=== PATIENT | male | born 1950 | race Caucasian/White ===

== ENCOUNTER 2020-01-23 08:58 | Outpatient (REF) | payer MEDICARE, OTHER, SELFPAY ==
[2020-01-23 11:34] LABS: Estimated Average Glucose 140 mg/dL; Hemoglobin A1c % 6.5 %
[2020-01-23 12:19] LABS: Triglycerides 130 mg/dL
[2020-01-23 12:31] LABS: Alanine Aminotransferase 20 U/L (0-40); Albumin Level 4.4 g/dL (3.5-5.0); Alkaline Phosphatase 50 U/L (39-117); Anion Gap 19 (12-20); Aspartate Amino Transferase 15 U/L (5-37); Bilirubin Total 1.8 mg/dL (0.0-1.0); Blood Urea Nitrogen 18 mg/dL (9-16); Calcium 8.7 mg/dL (8.4-10.2); Carbon Dioxide 22 mmol/L (22-29); Chloride 104 mmol/L (96-108); Cholesterol 113 mg/dL; Estimated Glomerular Filt Rate > 60; Glucose Fasting 143 mg/dL (60-99); HDL Cholesterol 32 mg/dL; LDL Cholesterol Calculated 55 mg/dl; Potassium 4.4 mmol/l (3.3-5.1); Sodium 141 mmol/L (135-145); Total Protein 6.6 g/dL (6.5-8.0)
[2020-01-23 13:33] LABS: Creatinine Urine 149.26 mg/dL; Microalbum/Creatinine Ratio Ur 151.4 ug/mg cr
== END 2020-01-23 08:59 | disposition home or self-care (01) ==
LOC: HO.MANLR 08:58
PROVIDERS: PCP Internal Medicine; Visit Provider Internal Medicine
DX: E11.9 Type 2 diabetes mellitus without complications (principal)
CPT/HCPCS: 80053; 80061; 82043; 83036

== ENCOUNTER 2020-04-27 07:43 | Outpatient (REF) | payer MEDICARE, OTHER, SELFPAY ==
[2020-04-27 11:47] LABS: Estimated Average Glucose 137 mg/dL; Hemoglobin A1c % 6.4 %
== END 2020-04-27 07:44 | disposition home or self-care (01) ==
LOC: HO.MANLR 07:43
PROVIDERS: PCP Internal Medicine; Visit Provider Internal Medicine
DX: E11.9 Type 2 diabetes mellitus without complications (principal)
CPT/HCPCS: 36415; 83036

== ENCOUNTER 2020-08-09 08:33 | Outpatient (REF) | payer MEDICARE, OTHER, SELFPAY ==
[2020-08-09 12:12] LABS: Alanine Aminotransferase 17 U/L (0-40); Albumin Level 4.4 g/dL (3.5-5.0); Alkaline Phosphatase 52 U/L (39-117); Anion Gap 13 (12-20); Aspartate Amino Transferase 15 U/L (5-37); Bilirubin Total 1.9 mg/dL (0.0-1.0); Blood Urea Nitrogen 16 mg/dL (9-16); Calcium 9.3 mg/dL (8.4-10.2); Carbon Dioxide 27 mmol/L (22-29); Chloride 105 mmol/L (96-108); Cholesterol 111 mg/dL; Estimated Glomerular Filt Rate > 60; Glucose Fasting 110 mg/dL (60-99); HDL Cholesterol 35 mg/dL; LDL Cholesterol Calculated 56 mg/dl; Potassium 4.5 mmol/L (3.3-5.1); Sodium 140 mmol/L (135-145); Total Protein 6.4 g/dL (6.5-8.0); Triglycerides 100 mg/dL
[2020-08-09 13:11] LABS: Estimated Average Glucose 137 mg/dL; Hemoglobin A1c % 6.4 %
== END 2020-08-09 08:34 | disposition home or self-care (01) ==
LOC: HO.MANLR 08:33
PROVIDERS: PCP Internal Medicine; Visit Provider Internal Medicine
DX: E11.9 Type 2 diabetes mellitus without complications (principal)
CPT/HCPCS: 36415; 80053; 80061; 83036

== ENCOUNTER 2020-12-17 09:40 | Outpatient (REF) | payer MEDICARE, OTHER, SELFPAY ==
[2020-12-17 12:22] LABS: Estimated Average Glucose 140 mg/dL; Hemoglobin A1c % 6.5 %
== END 2020-12-17 09:41 | disposition home or self-care (01) ==
LOC: HO.MANLDS 09:40
PROVIDERS: PCP Internal Medicine; Visit Provider Internal Medicine
DX: E11.9 Type 2 diabetes mellitus without complications (principal)
CPT/HCPCS: 36415; 83036

== ENCOUNTER 2021-03-28 08:59 | Outpatient (REF) | payer MEDICARE, OTHER, SELFPAY ==
[2021-03-28 11:08] LABS: Estimated Average Glucose 137 mg/dL; Hemoglobin A1c % 6.4 %
== END 2021-03-28 09:00 | disposition home or self-care (01) ==
LOC: HO.MANLDS 08:59
PROVIDERS: PCP Internal Medicine; Visit Provider Internal Medicine
DX: E11.9 Type 2 diabetes mellitus without complications (principal)
CPT/HCPCS: 36415; 83036

== ENCOUNTER 2021-06-15 08:25 | Outpatient (REF) | payer MEDICARE, OTHER, SELFPAY ==
[2021-06-15 11:35] LABS: Alanine Aminotransferase 26 U/L (0-40); Albumin Level 4.1 g/dL (3.5-5.0); Alkaline Phosphatase 56 U/L (39-117); Anion Gap 14 (12-20); Aspartate Amino Transferase 18 U/L (5-37); Bilirubin Total 1.2 mg/dL (0.0-1.0); Blood Urea Nitrogen 20 mg/dL (9-16); Calcium 9.1 mg/dL (8.4-10.2); Carbon Dioxide 25 mmol/L (22-29); Chloride 105 mmol/L (96-108); Cholesterol 129 mg/dL; Estimated Glomerular Filt Rate 42; Glucose Fasting 99 mg/dL (60-99); HDL Cholesterol 33 mg/dL; LDL Cholesterol Calculated 69 mg/dl; Potassium 4.3 mmol/L (3.3-5.1); Sodium 140 mmol/L (135-145); Total Protein 6.4 g/dL (6.5-8.0); Triglycerides 137 mg/dL
[2021-06-15 12:16] LABS: Creatinine Urine 191.46 mg/dL; Microalbum/Creatinine Ratio Ur 15.6 ug/mg cr
[2021-06-15 12:17] LABS: Estimated Average Glucose 140 mg/dL; Hemoglobin A1c % 6.5 %
== END 2021-06-15 08:26 | disposition home or self-care (01) ==
LOC: HO.MANLDS 08:25
PROVIDERS: PCP Internal Medicine; Visit Provider Internal Medicine
DX: E11.9 Type 2 diabetes mellitus without complications (principal)
CPT/HCPCS: 36415; 80053; 80061; 82043; 83036

== ENCOUNTER 2021-10-03 09:18 | Outpatient (REF) | payer MEDICARE, OTHER, SELFPAY ==
[2021-10-03 11:16] LABS: Estimated Average Glucose 137 mg/dL; Hemoglobin A1c % 6.4 %
== END 2021-10-03 09:19 | disposition home or self-care (01) ==
LOC: HO.MANLDS 09:18
PROVIDERS: Visit Provider Internal Medicine
DX: E11.9 Type 2 diabetes mellitus without complications (principal)
CPT/HCPCS: 36415; 83036

== ENCOUNTER 2022-01-16 08:57 | Outpatient (REF) | payer MEDICARE, OTHER, SELFPAY ==
[2022-01-16 11:47] LABS: Estimated Average Glucose 140 mg/dL; Hemoglobin A1c % 6.5 %
[2022-01-16 12:16] LABS: Alanine Aminotransferase 29 U/L (0-40); Albumin Level 4.4 g/dL (3.5-5.0); Alkaline Phosphatase 51 U/L (39-117); Anion Gap 19 (12-20); Aspartate Amino Transferase 23 U/L (5-37); Blood Urea Nitrogen 27 mg/dL (9-16); Calcium 8.7 mg/dL (8.4-10.2); Carbon Dioxide 22 mmol/L (22-29); Chloride 102 mmol/L (96-108); Cholesterol 134 mg/dL; Estimated Glomerular Filt Rate 39; Glucose Random 120 mg/dL (60-115); HDL Cholesterol 31 mg/dL; LDL Cholesterol Calculated 51 mg/dl; Potassium 4.6 mmol/L (3.3-5.1); Sodium 138 mmol/L (135-145); Total Protein 6.5 g/dL (6.5-8.0); Triglycerides 262 mg/dL
== END 2022-01-16 08:58 | disposition home or self-care (01) ==
LOC: HO.MANLDS 08:57
PROVIDERS: Visit Provider Internal Medicine
DX: E11.9 Type 2 diabetes mellitus without complications (principal)
CPT/HCPCS: 36415; 80053; 80061; 83036

== ENCOUNTER 2022-01-18 09:29 | Outpatient (REF) | payer MEDICARE, OTHER, SELFPAY ==
[2022-01-18 09:55] LABS: MANUAL DIFF FLAG NO
[2022-01-18 10:34] LABS: Basophils Absolute Auto 0.1 X10*3/uL (0.0-0.2); Basophils Percent Auto 0.8 % (0-2); Eosinophils Absolute Auto 0.9 X10*3/uL (0.0-0.4); Eosinophils Percent Auto 11.8 % (0-4); Hematocrit 39.1 % (42.0-52.0); Hemoglobin 12.8 g/dl (14.0-18.0); Imm Gran Abs Auto 0.07 X10*3/uL (0.00-0.03); Lymphocytes Absolute Auto 1.2 X10*3/uL (1.2-4.9); Lymphocytes Percent Auto 16.9 % (20-40); Mean Corpuscular HGB Conc 32.7 g/dl (31.0-36.0); Mean Corpuscular Hemoglobin 28.7 pg (27.0-33.0); Mean Corpuscular Volume 87.7 fL (80.0-98.0); Mean Platelet Volume 10.4 fL (9.4-12.4); Monocytes Absolute Auto 0.6 X10*3/uL (0.1-1.2); Monocytes Percent Auto 7.8 % (2-11); Neutrophils Absolute Auto 4.5 x10*3/uL (2.0-8.3); Neutrophils Percent Auto 61.7 % (45-73); Platelet Count 210 X10*3/uL (160-400); Red Blood Count 4.46 X10*6/uL (4.60-5.80); Red Cell Distribution Width 13.4 % (11.0-16.0); White Blood Count 7.3 X10*3/uL (4.8-10.8)
[2022-01-18 10:42] LABS: Estimated Average Glucose 140 mg/dL; Hemoglobin A1c % 6.5 %
[2022-01-18 11:18] LABS: Alanine Aminotransferase 30 U/L (0-40); Albumin Level 4.4 g/dL (3.5-5.0); Alkaline Phosphatase 47 U/L (39-117); Anion Gap 14 (12-20); Aspartate Amino Transferase 23 U/L (5-37); Bilirubin Total 1.1 mg/dL (0.0-1.0); Calcium 8.7 mg/dL (8.4-10.2); Carbon Dioxide 24 mmol/L (22-29); Chloride 104 mmol/L (96-108); Cholesterol 121 mg/dL; Estimated Glomerular Filt Rate 46; Glucose Random 171 mg/dL (60-115); HDL Cholesterol 28 mg/dL; LDL Cholesterol Calculated 69 mg/dl; Potassium 4.3 mmol/L (3.3-5.1); Sodium 138 mmol/L (135-145); Total Protein 6.5 g/dL (6.5-8.0); Triglycerides 123 mg/dL
[2022-01-18 11:22] LABS: Blood Urea Nitrogen 26 mg/dL (9-16)
== END 2022-01-18 09:30 | disposition home or self-care (01) ==
LOC: HO.LAB 09:29
PROVIDERS: PCP Internal Medicine; Visit Provider Internal Medicine
DX: Z00.00 Encounter for general adult medical examination without abnormal findings (principal); Z13.6 Encounter for screening for cardiovascular disorders; E11.9 Type 2 diabetes mellitus without complications
CPT/HCPCS: 36415; 80053; 80061; 83036; 85025

== ENCOUNTER 2022-04-18 10:05 | Outpatient (REF) | payer MEDICARE, OTHER, SELFPAY ==
[2022-04-18 11:48] LABS: Estimated Average Glucose 131 mg/dL; Hemoglobin A1c % 6.2 %
[2022-04-18 12:04] LABS: Alanine Aminotransferase 28 U/L (0-40); Alkaline Phosphatase 54 U/L (39-117); Anion Gap 17 (12-20); Aspartate Amino Transferase 26 U/L (5-37); Bilirubin Total 1.3 mg/dL (0.0-1.0); Blood Urea Nitrogen 30 mg/dL (9-16); Calcium 8.9 mg/dL (8.4-10.2); Carbon Dioxide 24 mmol/L (22-29); Chloride 104 mmol/L (96-108); Cholesterol 124 mg/dL; Estimated Glomerular Filt Rate 45; Glucose Random 107 mg/dL (60-115); HDL Cholesterol 30 mg/dL; LDL Cholesterol Calculated 63 mg/dl; Potassium 4.7 mmol/L (3.3-5.1); Sodium 140 mmol/L (135-145); Triglycerides 155 mg/dL
== END 2022-04-18 10:06 | disposition home or self-care (01) ==
LOC: HO.MANLDS 10:05
PROVIDERS: Visit Provider Internal Medicine
DX: E11.9 Type 2 diabetes mellitus without complications (principal)
CPT/HCPCS: 36415; 80053; 80061; 83036

== ENCOUNTER 2022-07-10 09:22 | Outpatient (REF) | payer MEDICARE, OTHER, SELFPAY ==
[2022-07-10 11:52] LABS: Estimated Average Glucose 312 mg/dL; Hemoglobin A1c % 12.5 %
[2022-07-10 13:48] LABS: Alanine Aminotransferase 16 U/L (0-40); Albumin Level 3.9 g/dL (3.5-5.0); Alkaline Phosphatase 63 U/L (39-117); Anion Gap 15 (12-20); Aspartate Amino Transferase 10 U/L (5-37); Bilirubin Total 1.9 mg/dL (0.0-1.0); Blood Urea Nitrogen 21 mg/dL (9-16); Calcium 8.9 mg/dL (8.4-10.2); Carbon Dioxide 27 mmol/L (22-29); Chloride 98 mmol/L (96-108); Cholesterol 116 mg/dL; Estimated Glomerular Filt Rate 44; Glucose Random 404 mg/dL (60-115); HDL Cholesterol 39 mg/dL; LDL Cholesterol Calculated 54 mg/dl; Potassium 4.6 mmol/L (3.3-5.1); Sodium 135 mmol/L (135-145); Triglycerides 119 mg/dL
== END 2022-07-10 09:23 | disposition home or self-care (01) ==
LOC: HO.MANLDS 09:22
PROVIDERS: Visit Provider Internal Medicine
DX: Z13.89 Encounter for screening for other disorder (principal)
CPT/HCPCS: 36415; 80053; 80061; 83036

== ENCOUNTER 2022-07-10 11:07 | Outpatient (REF) | payer MEDICARE, OTHER, SELFPAY ==
[2022-07-10 15:23] LABS: Creatinine Urine 93.62 mg/dL; Microalbum/Creatinine Ratio Ur 40.5 ug/mg cr
== END 2022-07-10 11:08 | disposition home or self-care (01) ==
LOC: HO.MANLNP 11:07
PROVIDERS: Visit Provider Internal Medicine
DX: E11.9 Type 2 diabetes mellitus without complications (principal)
CPT/HCPCS: 36415; 80053; 80061; 82043; 83036

== ENCOUNTER 2022-07-21 12:25 | Outpatient (REF) | payer MEDICARE, OTHER, SELFPAY ==
[2022-07-21 14:03] LABS: Appearance Urine Clear; Color Urine Yellow; Glucose Urine UA >=1000 mg/dL (Negative); Leukocyte Esterase Urine Negative (Negative); Nitrite Urine Negative (Negative); Specific Gravity - Urine >= 1.030 (1.005-1.025); UMIC TRIGGER UACC YES; Urine Blood Negative (Negative); Urine Ketones Negative (Negative); Urine Protein Negative (Neg-Trace)
[2022-07-21 14:05] LABS: Bacteria Urine None Seen (None Seen); Hyaline Casts Urine 0-2 /LPF (0-2); RBC Urine 0-2 /HPF (0-2); Squamous Epithelial Cell Urine 0-2 /HPF (0-2); WBC Urine 0-5 /HPF (0-5)
[2022-07-21 14:28] LABS: Creatinine Urine 48.72 mg/dL; Microalbum/Creatinine Ratio Ur 10.2 ug/mg cr
== END 2022-07-21 12:26 | disposition home or self-care (01) ==
LOC: HO.MANLNP 12:25
PROVIDERS: Visit Provider Internal Medicine
DX: E11.9 Type 2 diabetes mellitus without complications (principal); R30.0 Dysuria
CPT/HCPCS: 81001; 81003; 82043

== ENCOUNTER 2022-10-18 09:05 | Outpatient (REF) | payer MEDICARE, OTHER, SELFPAY ==
[2022-10-18 13:32] LABS: Estimated Average Glucose 180 mg/dL; Hemoglobin A1c % 7.9 %
== END 2022-10-18 09:06 | disposition home or self-care (01) ==
LOC: HO.MANLDS 09:05
PROVIDERS: Visit Provider Internal Medicine
DX: E11.9 Type 2 diabetes mellitus without complications (principal)
CPT/HCPCS: 36415; 83036

== ENCOUNTER 2023-01-02 09:05 | Outpatient (REF) | payer MEDICARE, OTHER, SELFPAY ==
[2023-01-02 13:54] LABS: Estimated Average Glucose 171 mg/dL; Hemoglobin A1C 149.3902 umol/L; Hemoglobin A1c % 7.6 % (<6.0)
[2023-01-02 14:08] LABS: Alanine Aminotransferase 9 U/L (0-40); Albumin Level 4.2 g/dL (3.5-5.0); Alkaline Phosphatase 51 U/L (39-117); Anion Gap 16 (12-20); Aspartate Amino Transferase 11 U/L (5-37); Bilirubin Total 1.4 mg/dL (0.0-1.0); Blood Urea Nitrogen 30 mg/dL (9-16); Calcium 9.2 mg/dL (8.4-10.2); Carbon Dioxide 24 mmol/L (22-29); Chloride 103 mmol/L (96-108); Cholesterol 100 mg/dL (<200); Estimated Glomerular Filt Rate 48; Glucose Random 153 mg/dL (60-115); HDL Cholesterol 31 mg/dL (>40); LDL Cholesterol Calculated 47 mg/dL (<100); Potassium 4.1 mmol/L (3.3-5.1); Sodium 139 mmol/L (135-145); Total Protein 6.5 g/dL (6.5-8.0); Triglycerides 112 mg/dL (<150)
== END 2023-01-02 09:06 | disposition home or self-care (01) ==
LOC: HO.MANLDS 09:05
PROVIDERS: Visit Provider Internal Medicine
DX: E11.9 Type 2 diabetes mellitus without complications (principal)
CPT/HCPCS: 36415; 80053; 80061; 83036

== ENCOUNTER 2023-02-05 09:42 | Outpatient (REF) | payer MEDICARE, OTHER, SELFPAY ==
[2023-02-05 14:06] LABS: Estimated Average Glucose 177 mg/dL; Hemoglobin A1c % 7.8 % (<6.0)
[2023-02-05 14:34] LABS: Alanine Aminotransferase 11 U/L (0-40); Albumin Level 4.1 g/dL (3.5-5.0); Alkaline Phosphatase 51 U/L (39-117); Anion Gap 15 (12-20); Aspartate Amino Transferase 12 U/L (5-37); Bilirubin Total 1.3 mg/dL (0.0-1.0); Blood Urea Nitrogen 28 mg/dL (9-16); Calcium 9.6 mg/dL (8.4-10.2); Carbon Dioxide 25 mmol/L (22-29); Chloride 104 mmol/L (96-108); Cholesterol 87 mg/dL (<200); Estimated Glomerular Filt Rate 51; Glucose Random 186 mg/dL (60-115); HDL Cholesterol 25 mg/dL (>40); LDL Cholesterol Calculated 35 mg/dL (<100); Potassium 3.8 mmol/L (3.3-5.1); Sodium 140 mmol/L (135-145); Total Protein 6.7 g/dL (6.5-8.0); Triglycerides 139 mg/dL (<150)
== END 2023-02-05 09:43 | disposition home or self-care (01) ==
LOC: HO.MANLDS 09:42
PROVIDERS: Visit Provider Internal Medicine
DX: E11.9 Type 2 diabetes mellitus without complications (principal)
CPT/HCPCS: 36415; 80053; 80061; 83036

== ENCOUNTER 2023-05-07 09:13 | Outpatient (REF) | payer MEDICARE, OTHER, SELFPAY ==
[2023-05-07 14:05] LABS: Estimated Average Glucose 171 mg/dL; Hemoglobin A1c % 7.6 % (<6.0)
[2023-05-07 14:22] LABS: Alanine Aminotransferase 9 U/L (0-40); Albumin Level 4.1 g/dL (3.5-5.0); Alkaline Phosphatase 67 U/L (39-117); Anion Gap 14 (12-20); Aspartate Amino Transferase 10 U/L (5-37); Bilirubin Total 1.4 mg/dL (0.0-1.0); Blood Urea Nitrogen 31 mg/dL (9-16); Calcium 9.2 mg/dL (8.4-10.2); Carbon Dioxide 26 mmol/L (22-29); Chloride 104 mmol/L (96-108); Cholesterol 89 mg/dL (<200); Estimated Glomerular Filt Rate 44; Glucose Random 214 mg/dL (60-115); HDL Cholesterol 30 mg/dL (>40); LDL Cholesterol Calculated 45 mg/dL (<100); Potassium 4.2 mmol/L (3.3-5.1); Sodium 140 mmol/L (135-145); Total Protein 6.6 g/dL (6.5-8.0); Triglycerides 74 mg/dL (<150)
[2023-05-07 14:33] LABS: Creatinine Urine 78.16 mg/dL; Microalbum/Creatinine Ratio Ur 88.2 ug/mg cr (<30)
== END 2023-05-07 09:14 | disposition home or self-care (01) ==
LOC: HO.MANLDS 09:13
PROVIDERS: Visit Provider Internal Medicine
DX: E11.9 Type 2 diabetes mellitus without complications (principal)
CPT/HCPCS: 36415; 80053; 80061; 82043; 82570; 83036

== ENCOUNTER 2023-09-24 09:23 | Outpatient (REF) | payer MEDICARE, OTHER, SELFPAY ==
[2023-09-24 13:35] LABS: Estimated Average Glucose 189 mg/dL; Hemoglobin A1c % 8.2 % (<6.0)
== END 2023-09-24 09:24 | disposition home or self-care (01) ==
LOC: HO.MANLDS 09:23
PROVIDERS: Visit Provider Internal Medicine
DX: E11.9 Type 2 diabetes mellitus without complications (principal)
CPT/HCPCS: 36415; 83036

== ENCOUNTER 2023-12-24 09:25 | Outpatient (REF) | payer MEDICARE, OTHER, SELFPAY ==
[2023-12-24 13:40] LABS: Estimated Average Glucose 183 mg/dL; Hemoglobin A1C 202.2535 umol/L; Total Hemoglobin (HGBA1C) 3158.1207 umol/L
[2023-12-24 14:21] LABS: Alanine Aminotransferase 15 U/L (0-40); Albumin Level 4.3 g/dL (3.5-5.0); Alkaline Phosphatase 54 U/L (39-117); Anion Gap 13 (12-20); Aspartate Amino Transferase 33 U/L (5-37); Bilirubin Total 0.9 mg/dL (0.0-1.0); Blood Urea Nitrogen 32 mg/dL (9-16); Calcium 9.4 mg/dL (8.4-10.2); Carbon Dioxide 28 mmol/L (22-29); Chloride 102 mmol/L (96-108); Cholesterol 126 mg/dL (<200); Estimated Glomerular Filt Rate 44; Glucose Random 199 mg/dL (60-115); HDL Cholesterol 32 mg/dL (>40); LDL Cholesterol Calculated 62 mg/dL (<100); Potassium 4.7 mmol/L (3.3-5.1); Sodium 138 mmol/L (135-145); Total Protein 6.7 g/dL (6.5-8.0); Triglycerides 161 mg/dL (<150)
[2023-12-24 14:47] LABS: Creatinine Urine 60.25 mg/dL; Microalbum/Creatinine Ratio Ur 29.8 ug/mg cr (<30)
== END 2023-12-24 09:26 | disposition home or self-care (01) ==
LOC: HO.MANLDS 09:25
PROVIDERS: Visit Provider Internal Medicine
DX: E11.9 Type 2 diabetes mellitus without complications (principal)
CPT/HCPCS: 36415; 80053; 80061; 82043; 82570; 83036

== ENCOUNTER 2024-04-11 09:51 | Outpatient (REF) | payer MEDICARE, OTHER, SELFPAY ==
--- OUTSIDE RECORDS SUMMARY | 2024-04-11 10:37 | XMS_ITS | Clinical Summary ---
Author Organization LL [address] [facility] Address [address] [place] [address] Phone Care Team Providers Care Livery Car Driver Name Role Phone Yuniel Kaplan DO Primary Care Provider Allergies No known active allergies Medications Medication Sig Dispensed Refills Start Date End Date Status Eliquis 5 mg tablet Take 1 tablet (5 mg total) by mouth 2 (two) times a day. Active aspirin 81 mg EC tablet Take 1 tablet (81 mg total) by mouth 1 (one) time each day. Active metFORMIN (GLUCOPHAGE) 1,000 mg tablet Take 1 tablet (1,000 mg total) by mouth 2 (two) times a day with meals. Active atorvastatin (LIPITOR) 80 mg tablet Take 1 tablet (80 mg total) by mouth 1 (one) time each day. Active metoprolol succinate (TOPROL-XL) 50 mg 24 hr tablet Take 1 tablet (50 mg total) by mouth 1 (one) time each day. Do not crush or chew. Active hydroCHLOROthiazid e (HYDRODIURIL) 25 mg tablet Take 1 tablet (25 mg total) by mouth 1 (one) time each day. Active lisinopril (PRINIVIL,ZESTRIL) 40 mg tablet Take 1 tablet (40 mg total) by mouth 1 (one) time each day. Active isosorbide mononitrate (IMDUR) 60 mg 24 hr tablet Take 1 tablet (60 mg total) by mouth 1 (one) time each day in the morning. Active zolpidem (AMBIEN) 10 mg tablet Take 1 tablet (10 mg total) by mouth at bedtime as needed. Max Daily Amount: 10 mg 02/20/2024 Active glimepiride (AMARYL) 4 mg tablet Take 1 tablet (4 mg total) by mouth 1 (one) time each day before breakfast. 11/04/2020 Active Jardiance 25 mg tablet Take 1 tablet (25 mg total) by mouth 1 (one) time each day. 12/21/2023 Active metFORMIN (FORTAMET) 1,000 mg 24 hr tablet Take 1 tablet (1,000 mg total) by mouth 2 (two) times a day. 02/13/2012 03/24/2024 Discontinued isosorbide mononitrate (IMDUR) 30 mg 24 hr tablet Take 1 tablet (30 mg total) by mouth 1 (one) time each day. Do not crush or chew. 03/24/2024 Discontinued Encounters Date Type Department Care Team Description 04/11/2024 Lab Requisition [facility] Lab [address] [place] [address] Adela Song MD Urinary tract infection, site not specified 02/22/2024 Lab Requisition [facility] Lab [address] [place] [phone] Corazon Avina MD Frequency of micturition from Last 3 Months Surgical History Surgery Date Site/Laterality Comments BACK SURGERY Right PROCEDURE: HISTORICAL BACK SURGERY; COMMENT: right L4-5 metrix july 2018 CARDIAC SURGERY PROCEDURE: HISTORICAL HEART SURGERY(ASD,VSD,VALVES); COMMENT: cardiac stents BACK SURGERY 06/08/2022 PROCEDURE: HISTORICAL BACK SURGERY; COMMENT: Redo right L4-5 minimally invasive discectomy, Dr. Mclain CORONARY STENT PLACEMENT LUMBAR LAMINECTOMY SPINE SURGERY Medical History Medical History Date Comments Coronary artery disease DX:Coron filomena artery disease Diabetes mellitus type 2, co ntrolled, with complications ([facility]) DX:Diabetes mellitus type 2, controlled, with complications ([facility]) Essential hypertension DX:Essent ial hypertension Obesity DX:Obesity Hyperlipidemia DX:Hyperlipidemi a Social History Tobacco Use Types Packs/Day Years Used Date Smoking Tobacco: Never Smokeless Tobacco: Never Sex and Gender Information Value Date Recorded Sex Assigned at Not on file Gender Identity Not on file Sexual Orientation Not on file Obstetrics History Last Filed Vital Signs Vital Sign Reading Time Taken Comments Blood Pressure - - Pulse - - Temperature - - Respiratory Rate - - Oxygen Saturation - - Inhaled Oxygen Concentration - - Weight 90.7 kg (200 lb) 03/24/2024 10:00 AM EST Height 177.8 cm (5' 10 ) 03/24/2024 10:00 AM EST Body Mass Index 28.7 03/24/2024 10:00 AM EST Plan of Treatment Upcoming Encounters Date Type Department Care Team (Late st Contact Info) Description 04/18/2024 7:30 AM EST Hospital Encounter [facility] OR [address] [place] [phone] Adela Song MD [address] [place] [address] 04/18/2024 7:30 AM EST - 04/18/2024 9:[address] [facility] OR [address] [place] [phone] Adela Song MD [address] [place] [address] TRANSURETHERAL RESECTION OF PROSTATE [77660 (CPT??)] Scheduled Procedures Name Priority Associated Diagnoses Date/Ti me CYSTOSCOPY TUR PROSTATE Benign prostatic hyperplasia with lower urinary tract symptoms 04/18/2024 7:30 AM EST Health Maintenance Due Date Last Done Comments Diabetes: Annual GFR (Glomerular Filtration Rate) 1949 Diabetes: Annual Foot Exam 08/05/1959 Diabetes: Annual Retina Eye Exam 08/05/1959 Zoster Vaccines (1 of 2) 1968 RSV Immunization Patients 60 + Years Old (1 - Risk 60-74 years 1-dose series) 2009 Pneumococcal Vaccine: 65+ Years (2 of 2 - PPSV23 or PCV20) 05/15/2018 03/20/2018 Cholesterol Screening (Lipid Panel) 04/03/2023 Colorectal Cancer Screening: Colonoscopy 04/03/2023 Depression Screening 04/03/2023 Falls Risk Assessment 04/03/2023 Hepatitis C Screening 04/03/2023 Medicare Annual Wellness Visit 04/03/2023 Social Influencers of Health Screening 04/03/2023 COVID-19 Vaccine (4 - 2023-2 5 season) 2023 03/17/2021, 06/10/2020, 05/15/2020 Influenza Vaccine (#1) 2023 2, 03/11/2021 Diabetes: Annual Urine Albumin-Creatinine Ratio (uACR) 03/18/2024 Diabetes: Blood Sugar Contro l Test (HGBA1C) 03/18/2024 Hypertension/CHF/CAD Annual BMP Blood Test 03/18/2024 DTaP,Tdap,and Td Vaccines (2 - Td or Tdap) 03/20/2028 03/20/2018 HIB Vaccines Aged Out No longer eligi ble based on patient's age to complete this topic HPV Vaccines Aged Out No longer eligi ble based on patient's age to complete this topic Hepatitis A Vaccines Aged Out No long er eligible based on patient's age to complete this topic Hepatitis B Vaccines Aged Out No long er eligible based on patient's age to complete this topic IPV Vaccines Aged Out No longer eligi ble based on patient's age to complete this topic MMR Vaccines Aged Out No longer eligi ble based on patient's age to complete this topic Meningococcal ACWY Vaccine Aged Out N o longer eligible based on patient's age to complete this topic RSV Immunization Patients Under 20 months Aged Out No longer eligible b ased on patient's age to complete this topic Varicella Vaccines Aged Out No longer eligible based on patient's age to complete this topic Procedures Procedure Name Priority Date/Time Associated Diagnosis Comments CULTURE URINE Routine 02/22/2024 1:05 PM EST Frequency of micturition from Last 3 Months Results * (ABNORMAL) Culture urine (02/22/2024 1:05 PM EST) Culture, Urine <100 CFU/mL Gram Positive Cocci(A) 02/24/2024 9:52 AM EST [facility] Comment: The organism value for this result has been updated. These results have been appended to the previously preliminary verified report. Urine Urine specimen from urinary conduit / Unknown 02/22/2024 1:05 PM EST 02/22/2024 1:10 PM EST Corazon Avina MD LAB MICROBIOLOGY - GENERAL ORDERABLES ANTONIO MCGREGOR [place] ([facility] LAB [address] [place] [address], from Last 3 Months Care Teams Livery Car Driver Relationship Specialty Start Date End Date Yuniel Kaplan DO [address] [place], [place] PCP - General 05/22/22
--- OUTSIDE RECORDS SUMMARY | 2024-04-11 10:37 | XMS_ITS | Encounter Summary ---
Author Organization [facility] Address [address] [place] [address] Care Team Providers Care Polygraph Examiner Name Role Phone Yuniel Kaplan DO Primary Care Provider [phone] Encounter Details Date Type Department Care Team (Late st Contact Info) Description 02/22/2024 Lab Requisition [facility] [address] [facility] [place] [phone] Corazon Avina MD [facility] [address] [address] Frequency of micturition Social History Tobacco Use Types Packs/Day Years Used Date Smoking Tobacco: Never Smokeless Tobacco: Never Sex and Gender Information Value Date Recorded Sex Assigned at Not on file Gender Identity Not on file Sexual Orientation Not on file documented as of this encounter Plan of Treatment Upcoming Encounters Date Type Department Care Team (Late st Contact Info) Description 04/18/2024 7:30 AM EST Hospital Encounter [address] [phone] Adela Song MD [address] [address] 04/18/2024 7:30 AM EST - 04/18/2024 9:00 AM EST Surgery [address] [phone] Adela Song MD [facility] [address] [address] TRANSURETHERAL RESECTION OF PROSTATE [50913 (CPT??)] Scheduled Procedures Name Priority Associated Diagnoses Date/Ti me CYSTOSCOPY TUR PROSTATE Benign prostatic hyperplasia with lower urinary tract symptoms 04/18/2024 7:30 AM EST documented as of this encounter Procedures Procedure Name Priority Date/Time Associated Diagnosis Comments CULTURE URINE Routine 02/22/2024 1:05 PM EST Frequency of micturition documented in this encounter Results * (ABNORMAL) Culture urine (02/22/2024 1:05 PM EST) Culture, Urine <100 CFU/mL Gram Positive Cocci(A) 02/24/2024 9:52 AM EST [facility] Comment: The organism value for this result has been updated. These results have been appended to the previously preliminary verified report. Urine Urine specimen from urinary conduit / Unknown 02/22/2024 1:05 PM EST 02/22/2024 1:10 PM EST Corazon Avina MD LAB MICROBIOLOGY - GENERAL ORDERABLES [facility] [address] [place], [place] [address] [phone] documented in this encounter Visit Diagnoses Diagnosis Frequency of micturition Urinary frequency Benign prostatic hyperplasia with lower urinary tract symptoms documented in this encounter Care Teams Polygraph Examiner Relationship Specialty Start Date End Date Yuniel Kaplan DO [address] [facility] [address] [place], [place] PCP - General 05/22/22 documented as of this encounter
--- OUTSIDE RECORDS SUMMARY | 2024-04-11 10:37 | XMS_ITS | Encounter Summary ---
Author Organization [facility] Address [id number] [place] [phone] Care Team Providers Care Mfg Assoc Name Role Phone Yuniel Kaplan DO Primary Care Provider [phone] Encounter Details Date Type Department Care Team (Late st Contact Info) Description 04/11/[address] [facility] Lab [address] [facility] [place] [phone] Adela Song MD [facility] [address] [address] Urinary tract infection, site not specified Social History Tobacco Use Types Packs/Day Years [...] Description 04/18/2024 7:30 AM EST Hospital Encounter [address] [phone] Adela Song MD [facility] [address] [address] 04/18/2024 7:30 AM EST - 04/18/2024 9:00 AM EST Surgery [facility] OR [address] [place] [phone] Adela Song MD [address] [address] TRANSURETHERAL RESECTION OF PROSTATE [[id number] (CPT??)] Scheduled Procedures Name Priority Associated Diagnoses Date/Ti me CYSTOSCOPY TUR PROSTATE Benign prostatic hyperplasia with lower urinary tract symptoms 04/18/2024 7:30 AM EST documented as of this encounter Visit Diagnoses Diagnosis Urinary tract infection, site not specified Benign prostatic hyperplasia with lower urinary tract symptoms documented in this encounter Care Teams Mfg Assoc Relationship Specialty Start Date End Date Yuniel Kaplan DO [address] [facility] [address] [place], [place] PCP - General 05/22/22 documented as of this encounter
[2024-04-11 14:44] LABS: Prostate Specific Antigen 1.07 ng/mL (<0.05-4.0)
== END 2024-04-11 09:52 | disposition home or self-care (01) ==
LOC: HO.MANLDS 09:51
PROVIDERS: Visit Provider Internal Medicine
DX: Z12.5 Encounter for screening for malignant neoplasm of prostate (principal); D49.511 Neoplasm of unspecified behavior of right kidney
CPT/HCPCS: 36415; 84153

== ENCOUNTER 2024-10-01 10:39 | Outpatient (REF) | payer MEDICARE, OTHER, SELFPAY ==
--- OUTSIDE RECORDS SUMMARY | 2024-10-01 11:38 | XMS_ITS | Clinical Summary ---
Author Organization [address] Address [address] [place] [address] Phone Care Team Providers Care Humidifier Maintenance Worker Name Role Phone Yuniel Kaplan Primary Care Provider [phone] Allergies No known active allergies Medications metFORMIN (GLUCOPHAGE) 1,000 mg tablet Take 1 [...] day. Do not crush or chew. Active hydroCHLOROthiaz marty (HYDRODIURIL) 25 mg tablet Take 1 tablet (25 mg total) by mouth 1 (one) time each day. Active lisinopril (PRINIVIL,ZESTRI L) 40 mg tablet Take 1 tablet (40 mg total) by mouth 1 (one) time each day. Active isosorbide mononitrate (IMDUR) 60 mg 24 hr tablet Take 1 tablet (60 mg total) by mouth 1 (one) time each day in the morning. Active Jardiance 25 mg tablet Take 1 tablet (25 mg total) by mouth 1 (one) time each day. 12/21/2023 Active aspirin 81 mg EC tablet Take 1 tablet (81 mg total) by mouth 1 (one) time each day. 04/21/2024 Active Eliquis 5 mg tablet Take 1 tablet (5 mg total) by mouth 2 (two) times a day. 04/23/2024 Active Surgical History Surgery Date Site/Laterality Comments BACK [...] mellitus type 2, co ntrolled, with complications (CMS/HCC V24, CMS/HCC V28) DX:Diabetes mellitus type 2, controlled, with complications ([facility]) Essential hypertension DX:Essent ial hypertension Obesity DX:Obesity Hyperlipidemia DX:Hyperlipidemi a Chronic kidney disease Social History Tobacco Use Types Packs/Day Years Used Date Smoking Tobacco: Former Cigarettes Smokeless Tobacco: Never Tobacco Cessation:Counseling Given: Not Answered Alcohol Use Standard Drinks/Week Comments Not Currently 0 (1 standard drink = 0.6 oz pur e alcohol) Interpersonal Safety Answer Date Record ed Physical Abuse 04/18/2024 Verbal Abuse 04/18/2024 Sex and Gender Information Value Date Recorded Sex Assigned at Male 04/17/2024 9:28 AM EST Legal Sex Male 9:11 AM EST Gender Identity Male 04/17/2024 9:28 AM EST Sexual Orientation Straight 04/18/2024 6: 04 AM EST Obstetrics History Last Filed Vital Signs Vital Sign Reading Time Taken Comments Blood Pressure 162/91 04/18/2024 11:55 AM EST Pulse 65 04/18/2024 11:55 AM EST Temperature 36.3 C (97.3 F) 04/18/2024 11:55 AM EST Respiratory Rate 20 04/18/2024 11:55 AM EST Oxygen Saturation 95% 04/18/2024 11:55 AM EST Inhaled Oxygen Concentration - - Weight 90.7 kg (200 lb) 03/24/2024 10:00 AM EST Height 177.8 cm (5' 10 ) 03/24/2024 10:00 AM EST Body Mass Index 28.7 03/24/2024 10:00 AM EST Plan of Treatment Health Maintenance Due Date Last Done Comments Diabetes: Annual Foot Exam 08/05/1959 Diabetes: Annual Retina Eye Exam 08/05/1959 Hepatitis A Vaccines (1 of 2 - Risk 2-dose series) 1968 Zoster Vaccines (1 of 2) 1968 Hepatitis B Vaccines (1 of 3 - Risk 3-dose series) 2009 Pneumococcal Vaccine: 50+ Years (2 of 2 - PPSV23) 05/15/2018 03/20/2018 Abdominal Aortic Aneurysm (AAA) Screen 04/03/2023 Cholesterol Screening (Lipid Panel) 04/03/2023 Colorectal Cancer Screening: Colonoscopy 04/03/2023 Falls Risk Assessment 04/03/2023 Hepatitis C Screening 04/03/2023 Medicare Annual Wellness Visit 04/03/2023 Social Influencers of Health Screening 04/03/2023 COVID-19 Vaccine ( - 2023-2 5 season) 2023 03/17/2021, 06/10/2020, 05/15/2020 Depression Screening 03/05/2024 Diabetes: Annual Urine Albumin-Creatinine Ratio (uACR) 03/18/2024 Diabetes: Blood Sugar Contro l Test (HGBA1C) 03/18/2024 RSV Immunization Adult Patients (1 - 1-dose 75+ series) 2024 Influenza Vaccine (#1) 2024 2, 03/11/2021, 12/11/2019 Diabetes: Annual GFR (Glomerular Filtration Rate) 03/31/2025 03/31/2024 Hypertension/CHF/CAD Annual BMP Blood Test 03/31/2025 03/31/2024 DTaP,Tdap,and Td Vaccines (2 - Td or [...] patient's age to complete this topic Meningococcal B Vaccine Aged Out No l onger eligible based on patient's age to complete this topic RSV Immunization Patients Under 20 months Aged Out No longer eligible b ased on patient's age to complete this topic Varicella Vaccines Aged Out No longer eligible based on patient's age to complete this topic Insurance MEDICARE MEDICAL JESSUP Care Teams Humidifier Maintenance Worker Relationship Specialty Start Date End Date Yuniel Kaplan DO [address] [facility] [address] [place], [place] PCP - General 05/22/22
--- OUTSIDE RECORDS SUMMARY | 2024-10-01 11:38 | XMS_ITS | Encounter Summary ---
Author Organization [facility] Address [address] [place] [phone] Phone Care Team Providers Care Plant Manager Name Role Phone Yuniel Kaplan DO Primary Care Provider [phone] Encounter Details Date Type Department Care Team (Late st Contact Info) Description 04/09/2020 Transcribe Orders Virtual Department [address] [place] [address] Renard Lewis MD [address] [place] [address] [email or web address] Social History Tobacco Use Types Packs/Day Years Used Date Smoking Tobacco: Former Cigarettes Q uit: 2012 Smokeless Tobacco: Never Alcohol Use Standard Drinks/Week Comments Never 0 (1 standard drink = 0.6 oz pur e alcohol) Sex and Gender Information Value Date Recorded Sex Assigned at Male 07/28/2018 11:16 AM EDT Legal Sex Male 10:02 PM EDT Gender Identity Male 07/28/2018 11:16 AM EDT Sexual Orientation Not on file documented as of this encounter Plan of Treatment Not on file documented as of this encounter Visit Diagnoses Not on filedocumented in this encounter Care Teams Plant Manager Relationship Specialty Start Date End Date Yuniel Kaplan DO [email or web address] PCP - General Internal Medicine 03/15/18 documented as of this encounter Additional Source Comments The information contained in this document represents components of the legal health record. It is not the complete legal health record.[facility]
[2024-10-01 13:26] LABS: MANUAL DIFF FLAG NO
[2024-10-01 13:36] LABS: Hematocrit 36.2 % (42.0-52.0); Hemoglobin 11.3 g/dl (14.0-18.0); Imm Gran Abs Auto 0.07 X10*3/uL (0.00-0.03); Imm Gran Pct Auto 0.8 % (0.0-0.4); Lymphocytes Absolute Auto 1.0 X10*3/uL (1.2-4.9); Mean Corpuscular HGB Conc 31.2 g/dl (31.0-36.0); Mean Corpuscular Hemoglobin 23.3 pg (27.0-33.0); Mean Corpuscular Volume 74.6 fL (80.0-98.0); NRBC Abs Auto 0.000 X10*3/uL (0.0-0.012); NRBC Pct Auto 0.0 /100WBC (0.0-0.2); Platelet Count 197 X10*3/uL (160-400); Red Blood Count 4.85 X10*6/uL (4.60-5.80); White Blood Count 8.6 X10*3/uL (4.8-10.8)
[2024-10-01 13:47] LABS: Hemoglobin A1C 360.0890 umol/L; Total Hemoglobin (HGBA1C) 2952.6289 umol/L
[2024-10-01 14:34] LABS: Alanine Aminotransferase 13 U/L (0-40); Albumin Level 4.6 g/dL (3.5-5.0); Alkaline Phosphatase 75 U/L (39-117); Anion Gap 16 (12-20); Aspartate Amino Transferase 18 U/L (5-37); Blood Urea Nitrogen 41 mg/dL (9-16); Calcium 9.3 mg/dL (8.4-10.2); Carbon Dioxide 23 mmol/L (22-29); Chloride 101 mmol/L (96-108); Estimated Glomerular Filt Rate 40; Potassium 5.1 mmol/L (3.3-5.1); Sodium 135 mmol/L (135-145); Total Protein 6.9 g/dL (6.5-8.0)
== END 2024-10-01 10:40 | disposition home or self-care (01) ==
LOC: HO.MANLDS 10:39
PROVIDERS: Visit Provider Internal Medicine
DX: Z00.00 Encounter for general adult medical examination without abnormal findings (principal); Z12.11 Encounter for screening for malignant neoplasm of colon; E11.9 Type 2 diabetes mellitus without complications
CPT/HCPCS: 36415; 80053; 83036; 85025

== ENCOUNTER 2024-12-19 09:36 | Outpatient (REF) | payer MEDICARE, OTHER, SELFPAY ==
--- OUTSIDE RECORDS SUMMARY | 2024-12-19 10:57 | XMS_ITS | Encounter Summary ---
Author Organization [facility] Address [address] [place] [address] Phone Care Team Providers Care Crane Rigger Name Role Phone Yuniel Kaplan DO Primary Care Provider [phone] Encounter Details Date Type Department Care Team (Late st Contact Info) Description 09/26/2018 Ancillary Orders Virtual Department [address] [place] [address] Samy Grover MD [address] [place] [phone] [email or web address] Atrial fibrillation, unspecified type Social History Tobacco Use Types Packs/Day Years Used Date Smoking Tobacco: Never Smokeless Tobacco: Never Alcohol Use Standard Drinks/Week Comments Not Currently [...] Care Team (Late st Contact Info) Description 06/20/2024 Procedure Pass [address] [address] 12/22/2024 9:15 AM EDT Appointment [address] [address] Mka Penaloza MD [address] [place] [address] [email or web address] 01/07/2025 10:30 AM EST Office Visit [facility] [address], [address] [place] [address] Baltazar Summers MD [address] [facility], [address] [place] [address] [email or web address] documented as of this encounter Results * CARDIOVERSION (11/06/2018 7:42 AM EDT) Anatomical Region Laterality Modality Ultrasound Narrative 11/06/2018 10:04 AM EDT Cardioversion DATE: 11/06/2018 TIME: 09:59 UNIVERSAL PROTOCOL: Consent obtained: Yes Time out: Immediately prior to the procedure a time out was called A time out verifies correct patient, procedure, equipment, cad application support specialist and site/side marked as required. SEDATION: Patient sedated?: Yes Please see separate sedation documentation. PRE-PROCEDURE: Cardioversion basis: elective Pre-procedure rhythm: atrial fibrillation Electrodes: pads Internal ICD shock Electrodes placement: anterior-posterior ATTEMPT DETAILS: Number of attempts: 1 Attempt 1 mode: synchronous Attempt 1 waveform: biphasic Manual pressure applied?: No Attempt 1 shock (Joules): 150 Attempt 1 outcome: conversion to normal sinus rhythm POST-PROCEDURE: Post-procedure rhythm: normal sinus rhythm Complications: no complications Samy Grover MD [facility] C[facility]IAC SERVICES ORDERABLES F inal Result documented in this encounter Visit Diagnoses Diagnosis Atrial fibrillation, unspecified type documented in this encounter Care Teams Crane Rigger Relationship Specialty Start Date End Date Yuniel Kaplan DO [email or web address] PCP - General Internal Medicine 03/15/18 documented as of this encounter Additional Source Comments The information contained in this document represents components of the legal health record. It is not the complete legal health record.[facility]
--- OUTSIDE RECORDS SUMMARY | 2024-12-19 10:57 | XMS_ITS | Encounter Summary ---
Author Organization [facility] Address [address] [place] [address] Phone Care Team Providers Care Service Engineer Name Role Phone Yuniel Kaplan Primary Care Provider Reason for Referral * MRI/CAT Scan - Closed Specialty Diagnoses / Procedures Referred By Zafar montalvo Referred To Contact Radiology Diagnoses Malignant neoplasm of kidney excluding renal pelvis, unspecified laterality Procedures CT Abdomen/Pelvis Corazon Avina MD [address] [place] [address], [address] [place] [address] Phone: tel: fax: [email or web address] Referral ID Status Reason Start Date Expiration Date Visits Re quested Visits Authorized [id number] Closed 11/07/2022 1 1 Encounter Details Date Type Department Care Team (Late st Contact Info) Description 11/07/2022 Transcribe Orders Virtual Department [address] [place] [address] Corazon Avina MD [address] [place] [address], [address] [place] [phone] [email or web address] Malignant neoplasm of kidney excluding renal pelvis, unspecified laterality (Primary Dx) Social History Tobacco Use Types Packs/Day Years Used Date Smoking Tobacco: Former Cigarettes Q uit: 2012 Smokeless Tobacco: Never Alcohol Use Standard Drinks/Week Comments Never 0 (1 standard drink = 0.6 oz pur e alcohol) Education Answer Date Recorded Are you interested in more education? Not on alcon e 06/30/2022 Are you concerned about learning? Not on file 06/30/2022 No 06/30/2022 No 06/30/2022 Digital Access Answer Date Recorded No 07/28/2022 No 07/28/2022 Reliable internet access at home? Not on file 07/28/2022 Device with a working camera? Not on file Intimate Partner Violence Answer Date R ecorded Are you denied basic needs s uch as food, clothing, or medical care? No 08/03/2022 In the past 12 months have y ou been in a relationship with a person who hurts, threatens, or tries to control you? No 08/03/2022 Are you denied basic needs s uch as food, clothing, or medical care? No 08/03/2022 In the past 12 months have y ou been in a relationship with a person who hurts, threatens, or tries to control you? No 08/03/2022 Sex and Gender Information Value Date Recorded Sex Assigned at Male 07/28/2018 11:16 AM EDT Legal Sex Male 10:02 PM EDT Gender Identity Male 07/28/2018 11:16 AM EDT Sexual Orientation Not on file documented as of this encounter Plan of Treatment Upcoming Encounters Date Type Department Care Team (Late st Contact Info) Description 06/20/2024 Procedure Pass [address] [address] 12/22/2024 9:15 AM EDT Appointment [address] [address] Mak Penaloza MD [address] [place] [address] 01/07/2025 10:30 AM EST Office Visit [facility] [address] [place] [address] 3rd Floor, [address] [place] [address] Baltazar Summers MD [address] [place] [address], [address] [place] [address] [email or web address] documented as of this encounter Results * CT ABDOMEN/PELVIS (RENAL MASS) WITH AND WITHOUT CONTRAST (11/09/2022 9:46 AM EDT) Anatomical Region Laterality Modality Abdomen, Pelvis Computed Tomogra phy 11/09/2022 10:0 5 AM EDT Impressions 11/09/2022 10:38 AM EDT Treatment effect surrounding 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 Findings imply effective treatment but continued close follow-up is advised, ideally attention undersigned radiologist. Recommend follow-up CT following renal mass protocol in 6 months. Narrative 11/09/2022 10:[address] ABDOMEN/PELVIS (RENAL MASS) WITH AND WITHOUT CONTRAST Indication: Follow-up right kidney renal cell carcinoma, papillary type status post cryoablation 08/03/2022. TECHNIQUE: Multidetector-row CT of the abdomen and pelvis was performed before and after administration of intravenous contrast using tailored dose modulation techniques. Images were reconstructed in the axial, coronal, and sagittal planes. COMPARISON: CT obtained at time of previous cryoablation 08/03/2022, noncontrast CT 07/06/2022 and MRI with and without contrast 05/31/2022. FINDINGS: : Exophytic mass projecting from the lower interpolar left kidney, biopsy- proven renal cell carcinoma, papillary type exhibits surrounding treatment effect. Discrete halo of altered density encompasses mass, currently measuring 3.2 x 3.3 cm, previously measuring 2.3 x 3.1 cm coronal diameter. Mass is larger in keeping with intralesional hemorrhage post biopsy and cryoablation. There is no early or delayed enhancement of the mass which now measures lower density than that pretreatment. Smooth interface with the adjacent kidney. There is lobular enhancing tissue at the superior medial border of the tumor which is of way from area of tumor shown on pretreatment imaging and is favored to reflect ablated normal renal tissue plus minus blood products but will require continued surveillance to ensure there is no active tumor in this location. Redemonstration of cystic change within the right renal hilum and projecting from the posterior superior right kidney. No new suspicious mass affecting either kidney. Uniform enhancement of collecting system and nondilated ureters. Hepatobiliary: Previous cholecystectomy. Liver otherwise normal. No liver mass or biliary dilation. Spleen and pancreas: Normal and unchanged. Adrenal glands: Stable left adrenal enlargement previously shown to have features of adenoma on MR imaging. No concerning change. GI: Intestines are nondilated and without mural thickening or adjacent fat stranding. Osseous: Multilevel degenerative changes redemonstrated. No concerning acute bony abnormality. Vascular: Mural calcification affects nondilated abdominal aorta. Normal luminal enhancement. Lung bases: Clear. Procedure Note Mak Penaloza MD - 11/09/2022 CT ABDOMEN/PELVIS (RENAL MASS) WITH AND WITHOUT CONTRAST Indication: Follow-up right kidney renal cell carcinoma, papillary typestatus post cryoablation 08/03/2022. TECHNIQUE: Multidetector-row CT of the abdomen and pelvis was performedbefore and after administration of intravenous contrast using tailoreddose modulation techniques. Images were reconstructed in the axial,coronal, and sagittal planes. COMPARISON: CT obtained at time of previous cryoablation 08/03/2022,noncontrast CT 07/06/2022 and MRI with and without contrast 05/31/2022. FINDINGS: : Exophytic mass projecting from the lower interpolar left kidney,biopsy- proven renal cell carcinoma, papillary type exhibits surroundingtreatment effect. Discrete halo of altered density encompasses mass,currently measuring 3.2 x 3.3 cm, previously measuring 2.3 x 3.1 cmcoronal diameter. Mass is larger in keeping with intralesional hemorrhagepost biopsy and cryoablation. There is no early or delayed enhancement ofthe mass which now measures lower density than that pretreatment. Smoothinterface with the adjacent kidney. There is lobular enhancing tissue atthe superior medial border of the tumor which is of way from area of tumorshown on pretreatment imaging and is favored to reflect ablated normalrenal tissue plus minus blood products but will require continuedsurveillance to ensure there is no active tumor in this location.Redemonstration of cystic change within the right renal hilum andprojecting from the posterior superior right kidney. No new suspiciousmass affecting either kidney. Uniform enhancement of collecting system andnondilated ureters. Hepatobiliary: Previous cholecystectomy. Liver otherwise normal. No livermass or biliary dilation. Spleen and pancreas: Normal and unchanged. Adrenal glands: Stable left adrenal enlargement previously shown to havefeatures of adenoma on MR imaging. No concerning change. GI: Intestines are nondilated and without mural thickening or adjacent fatstranding. Osseous: Multilevel degenerative changes redemonstrated. No concerningacute bony abnormality. Vascular: Mural calcification affects nondilated abdominal aorta. Normalluminal enhancement. Lung bases: Clear. IMPRESSION: Treatment effect surrounding right kidney renal cell carcinoma papillarytype. Findings imply effective treatment but continued close follow-up isadvised, ideally attention undersigned radiologist. Recommend follow-up CTfollowing renal mass protocol in 6 months. Corazon Avina MD IMG CT ABD/PELVIS Final Result documented in this encounter Visit Diagnoses Diagnosis Malignant neoplasm of kidney excluding renal pelvis, unspecified laterality- Primary Malignant neoplasm of kidney excluding renal pelvis, unspecified laterality documented in this encounter Care Teams Service Engineer Relationship Specialty Start Date End Date Yuniel Kaplan DO [email or web address] PCP - General Internal Medicine 03/15/18 documented as of this encounter Additional Source Comments The information contained in this document represents components of the legal health record. It is not the complete legal health record.[facility]
--- OUTSIDE RECORDS SUMMARY | 2024-12-19 10:57 | XMS_ITS | Encounter Summary ---
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 (Primary Dx) Social History Tobacco Use Types [...] st Contact Info) Description 06/20/2024 Procedure Pass [address] [address] 12/22/2024 9:15 AM EDT Appointment [address] [address] Mak Penaloza MD [address] [place] [address] [email or web address] 01/07/2025 10:30 AM EST Office Visit [facility] [address] [place] [address] 3rd Floor, [address] [place] [address] Baltazar Summers MD [address] [place] [address] [email or web address] documented as of this encounter Results * XR LUMBOSACRAL SPINE 2-3 VIEWS (10/06/2024 9:34 AM EDT) Anatomical Region Laterality Modality L-spine Computed Radiogr aphy 10/06/2024 10:3 7 AM EDT Impressions 10/06/2024 10:38 AM EDT Mild levoconvex curvature and multilevel degenerative changes. Narrative 10/06/2024 10:38 AM EDT XR LUMBOSACRAL SPINE 2-3 VIEWS Referring clinician's provided indication for this examination in Epic: Outside Radiology Order; DEGENERATION OF INTERVERTEBRAL DISC OF LUMBOSACRAL REGION WITH DISCONGENIC BACK PAIN COMPARISON: MRI LUMBAR SPINE (NEURO) WITHOUT CONTRAST FINDINGS: Mild levoconvex lumbar curvature. Vertebral body heights are maintained. Multilevel degenerative disc disease and multilevel degenerative facet arthritis is seen. Atherosclerotic vascular calcifications. Procedure Note Federico Rodriguez MD - 10/06/2024 XR LUMBOSACRAL SPINE 2-3 VIEWS Referring clinician's provided indication for this examination in Epic:Outside Radiology Order; DEGENERATION OF INTERVERTEBRAL DISC OFLUMBOSACRAL REGION WITH DISCONGENIC BACK PAIN COMPARISON: MRI LUMBAR SPINE (NEURO) WITHOUT CONTRAST FINDINGS: Mild levoconvex lumbar curvature. Vertebral body heights are maintained.Multilevel degenerative disc disease and multilevel degenerative facetarthritis is seen. Atherosclerotic vascular calcifications. IMPRESSION: Mild levoconvex curvature and multilevel degenerative changes. 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 It is not the complete legal health record.[facility]
--- OUTSIDE RECORDS SUMMARY | 2024-12-19 10:57 | XMS_ITS | Encounter Summary ---
Author Organization [facility] Address [address] [place] [address] Phone Care Team Providers Care Matcher Name Role Phone Yuniel Kaplan DO Primary Care Provider [phone] Encounter Details Date Type Department Care Team (Late st Contact Info) Description 03/15/2018 Ancillary Orders Virtual Department [address] [place] [address] Yuniel Kaplan DO [address] [place] [address] [place] [address] Encounter for screening for cardiovascular disorders Social History Tobacco Use Types Packs/Day Years Used Date Smoking Tobacco: Never Assessed Sex and Gender Information Value Date Recorded Sex Assigned at Male 07/28/2018 11:16 AM EDT Legal Sex Male 10:02 PM EDT Gender Identity Male 07/28/2018 11:16 AM EDT Sexual Orientation Not on file documented as of this encounter Plan of Treatment Upcoming Encounters Date Type Department Care Team (Late st Contact Info) Description 06/20/2024 Procedure Pass [address] [address] 12/22/2024 9:15 AM EDT Appointment [address] [address] Mak Penaloza MD [address] [place] [address] 01/07/2025 10:30 AM EST Office Visit [facility] [address] [facility] 3rd Floor, [address] [place] [address] Baltazar Summers MD [address] [facility], [address] [place] [address] [email or web address] documented as of this encounter Results * US Abdominal Aortic Screening (03/27/2018 8:14 AM EST) Anatomical Region Laterality Modality Abdomen Ultrasound 03/27/2018 11:3 3 AM EST Impressions 03/27/2018 11:39 AM EST No evidence for abdominal aortic aneurysm. Mild aortobiiliac atherosclerotic calcification. POS - [id number] Narrative 03/27/2018 11:39 AM EST US ABDOMINAL AORTIC SCREENING HISTORY: Encounter for screening for cardiovascular disorders COMPARISON: None. TECHNIQUE: Ultrasound imaging of the abdominal aorta with grayscale and color Doppler. FINDINGS: The abdominal aorta is normal in diameter, without focal aneurysm. Mild diffuse aortobiiliac atherosclerotic calcification. The following measurements were obtained of the abdominal aorta (AP X transverse): Proximal: 2.6 x 2.4 cm Midportion: 2.1 x 1.7 cm Distal portion: 1.9 x 1.8 cm Aortic bifurcation: Normal caliber. The right common iliac artery origin measures 1.4 cm. The left common iliac artery origin measures 1.5 cm. Procedure Note Criss Pichardo MD - 03/27/2018 US ABDOMINAL AORTIC SCREENING HISTORY: Encounter for screening for cardiovascular disorders COMPARISON: None. TECHNIQUE: Ultrasound imaging of the abdominal aorta with grayscale andcolor Doppler. FINDINGS: The abdominal aorta is normal in diameter, without focal aneurysm. Milddiffuse aortobiiliac atherosclerotic calcification. The followingmeasurements were obtained of the abdominal aorta (AP X transverse): Proximal: 2.6 x 2.4 cm Midportion: 2.1 x 1.7 cm Distal portion: 1.9 x 1.8 cm Aortic bifurcation: Normal caliber. The right common iliac artery originmeasures 1.4 cm. The left common iliac artery origin measures 1.5 cm. IMPRESSION: No evidence for abdominal aortic aneurysm. Mild aortobiiliacatherosclerotic calcification. POS - [id number] us Yuniel Kaplan DO IMG US ABDOMEN Final Result documented in this encounter Visit Diagnoses Diagnosis Encounter for screening for cardiovascular disorders Encounter for screening for cardiovascular disorders documented in this encounter Care Teams Matcher Relationship Specialty Start Date End Date Yuniel Kaplan DO [email or web address] PCP - General Internal Medicine 03/15/18 documented as of this encounter Additional Source Comments The information contained in this document represents components of the legal health record. It is not the complete legal health record.[facility]
--- OUTSIDE RECORDS SUMMARY | 2024-12-19 10:57 | XMS_ITS | Encounter Summary ---
Author Organization [facility] Address [address] [place] [address] Phone Care Team Providers Care Line Assigner Name Role Phone Yuniel Kaplan Primary Care Provider [phone] Encounter Details Date Type Department Care Team (Late st Contact Info) Description 08/03/2022 Procedure Pass [facility], Ct Scan - [address] [address] Social History Tobacco Use Types Packs/Day Years [...] st Contact Info) Description 06/20/2024 Procedure Pass [address] [address] 12/22/2024 9:15 AM EDT Appointment [address] [address] Mak Penaloza MD [address] [place] [phone] [email or web address] 01/07/2025 10:30 AM EST Office Visit [facility] [address] [place] [address] 3rd Floor, [address] [place] [address] Baltazar Summers MD [address] [place] [address], [address] [address] [email or web address] documented as of this encounter Visit Diagnoses Not on filedocumented in this encounter Care Teams Line Assigner Relationship Specialty Start Date End Date Yuniel Kaplan DO PCP - General Internal Medicine 03/15/18 documented as of this encounter Additional Source Comments The information contained in this document represents components of the legal health record. It is not the complete legal health record.[facility]
--- OUTSIDE RECORDS SUMMARY | 2024-12-19 10:57 | XMS_ITS | Encounter Summary ---
Author Organization [facility] Address [address] [place] [address] Care Team Providers Care Automotive Brake Technician Name Role Phone Yuniel Kaplan DO Primary Care Provider [phone] Encounter Details Date Type Department Care Team (Late st Contact Info) Description 04/11/2024 Lab Requisition [facility] - Main Lab [address] [place] [phone] Adela Song MD [address] [address] Urinary tract infection, site not specified Social History Tobacco Use Types Packs/Day Years Used Date Smoking Tobacco: Never Smokeless Tobacco: Never Sex and Gender Information Value Date Recorded Sex Assigned at Male 04/17/2024 9:28 AM EST Legal Sex Male 9:11 AM EST Gender Identity Male 04/17/2024 9:28 AM EST Sexual Orientation Straight 04/18/2024 6: 04 AM EST documented as of this encounter Plan of Treatment Not on file documented as of this encounter Procedures Procedure Name Priority Date/Time Associated Diagnosis Comments CULTURE URINE Routine 04/11/2024 8:41 AM EST Urinary tract infection, site not specified documented in this encounter Results * Culture urine (04/11/2024 8:41 AM EST) Culture, Urine No growth 04/12/2024 11:01 AM EST [facility] Urine Urine specimen obtained by clean catch procedure / Unknown 04/11/2024 8:41 AM EST 04/11/2024 10:43 AM EST us Adela Song MD LAB MICROBIOLOGY - G ENERAL ORDERABLES Final Result [facility] [address] [place] [address], documented in this encounter Visit Diagnoses Diagnosis Urinary tract infection, site not specified documented in this encounter Care Teams Automotive Brake Technician Relationship Specialty Start Date End Date Yuniel Kaplan DO [address] [facility] [address] [place], [place] PCP - General 05/22/22 documented as of this encounter
--- OUTSIDE RECORDS SUMMARY | 2024-12-19 10:57 | XMS_ITS | Encounter Summary ---
Author Organization [facility] Address [address] [place] [address] Phone Care Team Providers Care Air Cargo Agent Name Role Phone Yuniel Kaplan Primary Care Provider [phone] Encounter Details Date Type Department Care Team (Late st Contact Info) Description 08/03/2022 Procedure Pass [facility] [address] [place] [address] Social History Tobacco Use Types Packs/Day Years [...] st Contact Info) Description 06/20/2024 Procedure Pass [address] [address] 12/22/2024 9:15 AM EDT Appointment [address] [address] Mak Penaloza MD [address] [place] [address] [email or web address] 01/07/2025 10:30 AM EST Office Visit [facility] [address] [place] [address] 3rd Floor, [address] [place] [address] Baltazar Summers MD [address] [place] [address], [address] [address] [email or web address] documented as of this encounter Visit Diagnoses Not on filedocumented in this encounter Care Teams Air Cargo Agent Relationship Specialty Start Date End Date Yuniel Kaplan DO PCP - General Internal Medicine 03/15/18 documented as of this encounter Additional Source Comments The information contained in this document represents components of the legal health record. It is not the complete legal health record.[facility]
--- OUTSIDE RECORDS SUMMARY | 2024-12-19 10:57 | XMS_ITS | Data Portability ---
Author Organization [facility], Telehealth Patient Home Address [address] [place] [address] Assessment Encounter Date Assessment Date Assessment LastModified by Organization Details LastModified Time 10/01/2023 10/01/2023 Patient presente d to office today for their Medicare Annual Wellness Visit. Education was provided on healthy nutrition, including a diet rich in fruits and vegetables, minimizing simple carbohydrates, salt, and saturated fats. Encouraged regular cardiovascular exercise such as walking at least 30 minutes daily, 5 times per week. Emphasized preventive health measures and educated pt on fall prevention and community-based lifestyle interventions to help reduce health risks and promote healthy living. 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) MDM HIGH MUST MEET 2 OUT OF 3 ELEMENTS: PROBLEMS, DATA OR RISK ELEMENT 1: PROBLEMS 1 OR MORE CHRONIC ILLNESS W/SEVERE EXACERBATION, PROGRESSION MAY REQUIRE HOSPITAL LEVEL CARE OR 1 ACUTE OR CHRONIC ILLNESS OR INJURY THAT POSES A THREAT TO LIFE OR BODILY FUNCTION ELEMENT 2: DATA: MUST MEET 2 OF 3 CATEGORIES CATEGORY 1 REVIEW OF PRIOR EXTERNAL NOTES REVIEW OF THE RESULTS ORDERING OF EACH TEST ASSESSMENT REQUIRING INDEPENDENT HISTORIAN(S) CATEGORY 2: INDEPENDENT INTERPRETATION OF TESTS BY ANOTHER PROVIDER/SPECIALI ST CATEGORY 3: DISCUSSION OF MGT OR TEST INTERPRETATION W/EXTERNAL PHYSICIAN/SPECIAL IST ELEMENT 3: RISK HIGH RISK OF MORBIDITY FROM ADDITIONAL DIAGNOSTIC TESTING OR TREATMENT PROVIDER MUST THOROUGHLY DOCUMENT EACH ELEMENT THAT IS COVERED Not available 01/01/2024 14:18:32 04/09/2024 04/09/2024 [id number] [place] [id number] (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) MDM MODERATE MUST MEET 2 OUT OF 3 ELEMENTS: PROBLEMS, DATA OR RISK ELEMENT 1: PROBLEMS ADDRESSED 1 OR MORE CHRONIC ILLNESS WITH EXACERBATION OR 2 OR MORE STABLE CHRONIC ILLNESSES OR 1 UNDIAGNOSED NEW PROBLEM OR 1 ACUTE ILLNESS W/SYMPTOMS OR 1 ACUTE COMPLICATED INJURY ELEMENT 2: DATA MUST MEET 1 OF 3 CATEGORIES CATEGORY 1: REVIEW OF PRIOR EXTERNAL NOTES, REVIEW OF RESULTS, ORDERING OF EACH TEST, ASSESSMENT REQUIRING INDEPENDENT HISTORIAN OR CATEGORY 2: INDEPENDENT INTERPRETATION OF TESTS BY ANOTHER PHYSICIAN OR SPECIALIST OR CATEGORY 3: DISCUSSION OF MGT OR TEST INTERPRETATION W/EXTERNAL PHYSICIAN OR SPECIALIST ELEMENT 3: RISK RISK OF COMPLICATIONS AND/OR MORBIDITY OR MORTALITY OF PATIENT MANAGEMENT PROVIDER MUST THOROUGHLY DOCUMENT EACH ELEMENT THAT IS COVERED Not available 04/09/2024 09:57:41 05/09/2024 05/09/2024 [id number] [place] [id number] ([employer]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) MDM MODERATE MUST MEET 2 OUT OF 3 ELEMENTS: PROBLEMS, DATA OR RISK ELEMENT 1: PROBLEMS ADDRESSED 1 OR MORE CHRONIC ILLNESS WITH EXACERBATION OR 2 OR MORE STABLE CHRONIC ILLNESSES OR 1 UNDIAGNOSED NEW PROBLEM OR 1 ACUTE ILLNESS W/SYMPTOMS OR 1 ACUTE COMPLICATED INJURY ELEMENT 2: DATA MUST MEET 1 OF 3 CATEGORIES CATEGORY 1: REVIEW OF PRIOR EXTERNAL NOTES, REVIEW OF RESULTS, ORDERING OF EACH TEST, ASSESSMENT REQUIRING INDEPENDENT HISTORIAN OR CATEGORY 2: INDEPENDENT INTERPRETATION OF TESTS BY ANOTHER PHYSICIAN OR SPECIALIST OR CATEGORY 3: DISCUSSION OF MGT OR TEST INTERPRETATION W/EXTERNAL PHYSICIAN OR SPECIALIST ELEMENT 3: RISK RISK OF COMPLICATIONS AND/OR MORBIDITY OR MORTALITY OF PATIENT MANAGEMENT PROVIDER MUST THOROUGHLY DOCUMENT EACH ELEMENT THAT IS COVERED Not available 05/09/2024 11:16:40 10/01/2024 10/01/2024 Patient presente d to office today for their Medicare Annual Wellness Visit. Education was provided on healthy nutrition, including a diet rich in fruits and vegetables, minimizing simple carbohydrates, salt, and saturated fats. Encouraged regular cardiovascular exercise such as walking at least 30 minutes daily, 5 times per week. Emphasized preventive health measures and educated pt on fall prevention and community-based lifestyle interventions to help reduce health risks and promote healthy living. Not available 09/26/2024 11:26:32 Plan of Treatment Reminders Order Date Submit Date Provider Last Modified By Organization Details Last Modified Time Details Appointments FOLLOW UP 15 2024 09:30A M DR BROOKS Not available Not available Not available MEDICAR E ANNUAL WELLNES S 2025 09:30A M DR BROOKS Not available Not available Not available Lab hemoglo bin A1c, QN, blood 2024 025 [facility], [address] [place] [address], [id number], 10/02/2024 12:08:42 CBC w/ auto diff 2024 025 [facility], [address] [place] [address], [id number], 10/01/2024 10:30:36 CMP, serum or plasma 2024 025 [facility], [address] [place] [address], [id number], 10/02/2024 12:08:42 hemoglo bin, gastroi ntestin al, stool 2024 025 [facility], [address] [place] [address], [id number], 10/01/2024 10:30:36 lipid panel, blood [address] [facility], [address] [place] [address], [id number], 05/09/2024 11:25:54 microal bumin, urine [address] [facility], [address] [place] [address], [id number], 05/09/2024 11:25:54 lipid panel, serum [address] [facility], [address] [place] [address], [id number], 05/09/2024 11:25:54 CBC w/ auto diff 2023 024 [facility], [address] [place] [address], [id number], 10/02/2023 23:42:14 CMP, serum or plasma 2023 024 [facility], [address] [facility], [place], [address], 10/02/2023 23:42:14 Referral None recorde d. Procedures None recorde d. Surgeries None recorde d. Imaging home sleep study 2024 025 [facility], [address], [place], [address], 10/08/2024 08:16:39 XR, lumbosa cral spine, 2 or 3 view 2024 025 [facility] Central Scheduling (Not Breast), [address] [facility], [place], [address], 10/06/2024 10:43:36 Medication Orders glipizi de 10 mg tablet 2024 [id number], [address], [place], [phone], 05/09/2024 11:34:33 hydroco done 10 mg-acet aminoph en 325 mg tablet 2023 025 [facility] Not available 04/09/2024 09:27:57 trazodo ne 50 mg tablet 2023 024 [facility] Not available 01/28/2024 16:48:09 Patient TargetsNo targets recorded. Patient Instructions Encounter Date Encounter Id Patient Instructions Last Modified By Organization Details Last Modified Time 10/01/2023 [id number] low back arthritis: exercises Not available 10/02/2023 23:26:41 learning about type 2 diabetes Not available 10/02/2023 23:26:41 type 2 diabetes: care instructions Not available 10/02/2023 23:26:41 advance care planning: care instructions Not available 10/02/2023 23:26:41 Discussed and explained advance directives such as standard forms to the . Face to face discussion lasted for a duration of ___ minutes. Not available 09/28/2023 14:14:00 01/01/2024 [id number] low back arthritis: exercises Not available 01/01/2024 14:20:41 insomnia: care instructions Not available 01/01/2024 14:20:41 learning about type 2 diabetes Not available 01/01/2024 14:20:41 type 2 diabetes: care instructions Not available 01/01/2024 14:20:41 pulse oximetry* Not available 01/01/2024 14:20:48 atrial fibrillation: care instructions Not available 01/01/2024 14:20:41 04/09/2024 [id number] pulse oximetry* Not available 04/09/2024 10:03:16 05/09/2024 [id number] pulse oximetry* Not available 05/09/2024 11:25:55 10/01/2024 [id number] advance care planning: care instructions Not available 10/01/2024 10:29:18 pulse oximetry* Not available 10/01/2024 10:29:18 Discussed and explained advance directives such as standard forms to the . Face to face discussion lasted for a duration of ___ minutes. Not available 09/26/2024 11:26:32 Reason for Referral None Reported. Results Created Date Observation Date Name Description Value Unit Range Abnormal Flag Note LastModifiedBy Organization Detail LastModifiedTime 01/01/20 24 01/01/2024 pulse oxime try* Result 95 Not Available [facility] [address], [address], 12/05/2023 16:05:39 04/09/19 25 04/09/2024 pulse oxime try* Result 96% RA Not Available [facility] [address], [address], 04/08/2024 08:35:19 05/10/19 25 05/09/2024 pulse oxime try* Result 97% Not Available [facility] [address], [address], 05/04/2024 13:55:28 10/02/1910/01/2024 pulse oxime try* Result 96% Not Available [facility] [address] [facility] [address], [place], [address], 09/26/2024 12:03:23 10/07/19 25 10/06/2024 XR, lumbo sacra l spine , 2 or 3 view No observ ation record ed. [facility] [address], [place], [address], 10/07/2024 08:45:19 10/22/1910/18/2024 MRI, lumba r spine , w/o contr ast No observ ation record ed. [facility] [address] [facility] [address], [place], [address], 10/22/2024 16:06:36 Result Notes None recorded. Problems Name Problem SNOMED Code Status Onset Date Resolution Date Notes Provider Name and Address Organization Details Recorded Time Hyperlipi demia 51438332 Active 2017 Not Available [facility] 0 02:44:13 Blood pressure above reference range 73718976 Active 2017 Not Available [facility] 0 02:44:13 Type 2 diabetes mellitus 44034288 Active 2017 Not Available [facility] 0 02:44:13 Hypotesto steronism 451089623540 4 Active 2017 Not Available [facility] 0 02:44:13 Gastroeso phageal reflux disease 922463959 Active 2017 Not Available [facility] 0 02:44:13 Coronary arteriosc lerosis 98967500 Active 2017 Not Available [facility] 0 02:44:13 Ischemic heart disease 710402850 Active 2017 Not Available [facility] 0 02:44:13 Atrial fibrillat ion 49930067 Active 2018 Not Available [facility] 0 02:44:13 Intermitt ent claudicat ion 37949046 Active 2021 Yuniel Brooks, DO [address] [place] [address], [address], [facility] 2 11:01:26 Degenerat ion of lumbar intervert ebral disc 70493681 Active 2022 YESSI ALANIS [address] [place] [address], [address], [facility] 5 16:52:24 Renal mass 898727271 Active 2022 Yuniel Brooks, DO [address] [place] [address], [address], [facility] 3 22:27:00 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 71842791 Active 2022 Yuniel Brooks DO [address] [place] [address], [address], [facility] 3 20:49:17 Neoplasm of right kidney 488134923123 24741 Active 2022 Yuniel Brooks DO [address] [place] [address], [address], [facility] 3 22:44:46 Steatotic liver disease 886782997 Active 2022 Yuniel Brooks DO [address] [place] [address], [address], [facility] 3 22:45:01 Hypertens kia disorder 51491125 Active 2022 Yuniel Brooks DO [address] [place] [address], [address], [facility] 3 12:12:13 Insomnia 557604733 Active 2023 Yuniel Brooks DO [address] [place] [address], [address], [facility] 4 14:15:18 Nocturia 772642090 Active 2024 Yuniel Brooks, DO [address] [facility], [place], [address], [facility] 5 10:26:22 Daytime somnolenc e 233285483978 Active 2024 Yuniel Brooks, DO [address] [place], [address], [facility] 5 10:26:56 Degenerat ion of lumbosacr al intervert ebral disc 28394171 Active 2024 Yuniel Brooks, DO [address] [facility], [place], [address], [facility] 5 10:32:00 Uncontrol led type 2 diabetes mellitus 323551601 Active 2024 Yuniel Brooks, DO [address] [place] [address], [address], [facility] 21:53:35 Problem Notes None recorded. Medical Equipment None Reported. Allergies No known drug allergies Medications Name Sig Start Date Stop Date Status Note LastModified by Organization Details LastModified Time Prescript ion - Prior Authoriza tion Request 02/21 completed Lidocain e patch APPROVAL Not Available Not Available Not Available amoxicill in 500 mg capsule TAKE 1 CAPSULE BY MOUTH THREE TIMES DAILY 07/21 completed Not Available Not Available Not Available cilostazo l 100 mg tablet TAKE 1 TABLET BY MOUTH DAILY active Not Available Not Available No t Available atorvasta tin 80 mg tablet TAKE 1 TABLET BY MOUTH DAILY active Not Available Not Available No t Available Tylenol 500 mg capsule Take 2 tablets every 4 hours by oral route as needed. 09/29 completed Not Available Not Available Not Available trazodone 50 mg tablet TAKE 1 TABLET BY MOUTH EVERY DAY 01/27 completed Not Available Not Available Not Available nitroglyc arpita 0.3 mg sublingua l tablet active Not Available Not Available Not Available metoprolo l succinate ER 50 mg tablet,ex tended release 24 hr TAKE 1 TABLET BY MOUTH DAILY active Not Available Not Available No t Available tolterodi ne ER 4 mg capsule,e xtended release 24 hr TAKE 1 CAPSULE BY MOUTH EVERY DAY active Not Available Not Available No t Available hydrocodo ne 5 mg-acetam inophen 325 mg tablet TAKE 1 TABLET BY MOUTH EVERY 6 HOURS NEEDED FOR PAIN 04/09 completed Not Available Not Available Not Available FreeStyle Lancets 28 gauge USE TO TEST BLOOD SUGAR TWICE DAILY active Not Available Not Available No t Available lisinopri l 20 mg tablet Take 1 tablet every day by oral route. 02/21 completed Not Available Not Available Not Available glipizide 10 mg tablet TAKE 1 TABLET BY MOUTH TWICE DAILY 2024 active Not Available Not Available Not Avai lable prednison e 20 mg tablet 3 tads X 3 days , 2 tabs x 3 days, 1 tab X 3 days 06/18 completed Not Available Not Available Not Available isosorbid e mononitra te ER 30 mg tablet,ex tended release 24 hr TAKE 1 TABLET BY MOUTH DAILY IN THE MORNING 10/07 completed Not Available Not Available Not Available metoprolo l succinate ER 100 mg tablet,ex tended release 24 hr TAKE 1 TABLET BY MOUTH EVERY DAY 08/05 completed Not Available Not Available Not Available Zithromax Z-Emanuel 250 mg tablet TAKE 2 TABLETS (500 MG) BY ORAL ROUTE ONCE DAILY FOR 1 DAY THEN 1 TABLET (250 MG) BY ORAL ROUTE ONCE DAILY FOR 4 DAYS 10/15 completed Not Available Not Available Not Available hydrocodo ne 10 mg-acetam inophen 325 mg tablet TAKE 1 TABLET BY MOUTH EVERY 4 HOURS FOR 7 DAYS NEEDED 04/09 completed Not Available Not Available Not Available amoxicill in 500 mg tablet 09/29 completed Not Available Not Available Not Available glimepiri de 2 mg tablet Take 1 tablet by mouth once a day 08/07 completed Not Available Not Available Not Available isosorbid e mononitra te ER 60 mg tablet,ex tended release 24 hr TAKE 1 TABLET BY MOUTH DAILY IN THE MORNING active Not Available Not Available No t Available magnesium oxide 400 mg (241.3 mg magnesium ) tablet Take 1 tablet every day by oral route for 30 days. 05/31 completed Not Available Not Available Not Available famciclov ir 500 mg tablet 08/07 completed Not Available Not Available Not Available pantopraz ole 40 mg tablet,de layed release TAKE 1 TABLET BY MOUTH TWO TIMES A DAY AFTER PROCEDUR E AND THEN STOP. MAY RESUME OMEPRAZO LE AFTER STOPPING THIS MEDICATI ON. 09/17 completed Not Available Not Available Not Available metformin 1,000 mg tablet TAKE 1 TABLET BY MOUTH TWICE DAILY 05/09 completed Not Available Not Available Not Available lisinopri l 10 mg tablet Take 1 tablet every day by oral route. 06/28 completed Not Available Not Available Not Available glimepiri de 4 mg tablet TAKE 1 TABLET BY MOUTH EVERY DAY 04/28 completed Not Available Not Available Not Available lidocaine 5 % topical patch APPLY 1 PATCH TRANSDER AARON ONCE DAILY, MAY WEAR UP TO 12 HOURS 09/29 completed Not Available Not Available Not Available gabapenti n 300 mg capsule Take 1 capsule 3 times a day by oral route. 10/25 completed Not Available Not Available Not Available omeprazol e 20 mg capsule,d elayed release Take 1 capsule every day by oral route. active Not Available Not Available No t Available hydrochlo rothiazid e 25 mg tablet TAKE 1 TABLET BY MOUTH DAILY active Not Available Not Available No t Available zolpidem 5 mg tablet TAKE 1 TABLET BY MOUTH DIRECTED NEEDED FOR 30 DAYS 02/19 completed Not Available Not Available Not Available zolpidem 10 mg tablet TAKE 1 TABLET BY MOUTH AT BEDTIME NEEDED active Not Available Not Available No t Available lisinopri l 40 mg tablet TAKE 1 TABLET BY MOUTH DAILY active Not Available Not Available No t Available oxycodone 5 mg tablet 08/07 completed Not Available Not Available Not Available alfuzosin ER 10 mg tablet,ex tended release 24 hr TAKE 1 TABLET BY MOUTH AT BEDTIME 05/20 completed Not Available Not Available Not Available metoprolo l tartrate 25 mg tablet Take one tablet twice a day. 02/21 completed Not Available Not Available Not Available solifenac in 5 mg tablet TAKE 1 TABLET BY MOUTH EVERY DAY active Not Available Not Available No t Available Boostrix Tdap 2.5 Lf unit-8 mcg-5 Lf/0.5 mL intramusc ular syringe 10/25 completed Not Available Not Available Not Available chlorhexi dine gluconate 0.12 % mouthwash 09/29 completed Not Available Not Available Not Available omeprazol e Take one tablet once a day 09/29 completed Not Available Not Available Not Available Aspir-81 05/31 completed Not Available Not Available Not Available FreeStyle Lite Meter kit USE TO TEST BLOOD SUGAR active Not Available Not Available No t Available FreeStyle Lite Strips USE 1 STRIP DIRECTED TO TEST BLOOD SUGAR TWICE DAILY active Not Available Not Available No t Available Multaq 400 mg tablet TAKE 1 TABLET BY MOUTH TWICE DAILY 12/21 completed Not Available Not Available Not Available Eliquis 5 mg tablet TAKE 1 TABLET BY MOUTH TWICE DAILY active Not Available Not Available No t Available Jardiance 10 mg tablet TAKE 1 TABLET BY MOUTH EVERY DAY 10/27 completed Not Available Not Available Not Available Jardiance 25 mg tablet TAKE 1 TABLET BY MOUTH EVERY DAY 05/09 completed Not Available Not Available Not Available Shingrix (PF) 50 mcg/0.5 mL intramusc ular suspensio n, kit 01/22 completed Not Available Not Available Not Available Fluad Quad (65yr up)(PF) 60 mcg (15 mcg x 4)/0.5mL IM syringe ADM 0.5ML IM UTD 01/22 completed Not Available Not Available Not Available aspirin 81 mg capsule Take 1 capsule every day by oral route. active Not Available Not Available No t Available Vitals Date Recorded Body height Body mass index (BMI) Body weight Heart rate Oxygen saturation Oxygen saturation in Arterial blood by Pulse oximetry Systolic And Diastolic Provider Name and Address Organization Details Last Updated DateTime 5 175.26 cm 30.3 kg/m2 05861.4 4 g 66 /min 96 % 96 % 124/70 mm[Hg] Chaz Orozco [facility] 5 09:29:00 Date Recorded Body height Body mass index (BMI) Body weight Heart rate Oxygen saturation Oxygen saturation in Arterial blood by Pulse oximetry Systolic And Diastolic Provider Name and Address Organization Details Last Updated DateTime 5 175.26 cm 30.3 kg/m2 23518.4 4 g 70 /min 97 % 97 % 112/58 mm[Hg] Lisbeth Roberts [facility] 5 11:06:27 Date Recorded Body height Body mass index (BMI) Body weight Oxygen saturation Oxygen saturation in Arterial blood by Pulse oximetry Heart rate Systolic And Diastolic Provider Name and Address Organization Details Last Updated DateTime 5 175.26 cm 31 kg/m2 47204.6 8 g 96 % 96 % 58 /min 110/72 mm[Hg] Elaine Kapoor [facility] 5 10:00:45 Date Recorded Body height Body mass index (BMI) Body weight Heart rate Oxygen saturation Oxygen saturation in Arterial blood by Pulse oximetry Systolic And Diastolic Provider Name and Address Organization Details Last Updated DateTime 4 175.26 cm 30.6 kg/m2 88151.6 2 g 72 /min 95 % 95 % 118/62 mm[Hg] Chaz Shahidin [facility] 4 13:53:51 Social History Question Answer Notes LastModified by Organizat ion Details LastModified Time Tobacco Smoking Status Former Smoker Not Available [facility] 01/06/2020 03:36:23 What Was The Date Of Your Most Recent Tobacco Screening? 10/01/2024 Information not available 10/01/2024 Sex: Unknown Functional Status Question Answer Note LastModified by Organization D etails LastModified Time Do you or have you ever used any other forms of tobacco or nicotine? No [email or web address] Information not available 02/14/2023 Mental Status None recorded. Family History Nothing Reported. Medical History No medical history recorded. Immunizations Vaccine Type Date Status Note Provider Nam e and Address Organization Details Recorded Time Influenza, split virus, quadrivalent, preservative 0 completed Not Available [facility] 11/09/2022 14:23:48 COVID-19, mRNA, LNP-S, PF, 30 mcg/0.3 mL dose 1 completed Not Available [facility] 11/09/2022 14:23:49 COVID-19, mRNA, LNP-S, PF, 30 mcg/0.3 mL dose 1 completed Not Available [facility] 11/09/2022 14:23:49 Tdap 9 completed Not Available [facility] 11/09/2022 14:23:49 Pneumococcal conjugate PCV 13 9 completed Not Available [facility] 11/09/2022 14:23:49 Past Encounters Encounter ID Performer Location Encounter Start Date Encounter Closed Date Diagnosis/Indication Diagnosis SNOMED-CT Code Diagnosis ICD10 Code Diagnosis IMO Codes Diagnosis Note [id number] Yuniel Brooks DO [facility] Medicine [address] [place] [address] 07/17/2017 10:20:12 07/17/2017 11:12:23 Type 2 diabetes mellitus 68568130 E11.9 Acute bronchopneumonia 646337062 J18.0 [id number] Yuniel Hobson Rosaura [facility] [address] [place] [address] 11/19/2017 10:00:31 11/19/2017 10:40:13 Hypotestosteronism 2302273595 104 R79.89 Ischemic h eart disease 763131793 I25.9 quiet and without similatr symptoms as in the past with cad Type 2 ivania betes mellitus 25861913 E11.9 a1c today drawn will alert if elevated Hyperlipidemia 28954148 E78.5 [id number] Yuniel Hobson Rosaura [facility] Medicine [address] [facility],[place] [address] 03/15/2018 13:28:33 03/15/2018 14:45:18 Type 2 diabetes mellitus 02013068 E11.9 a1c was 7.5 and microalbum in was negative Blood pres sure above reference range 31961561 R03.0 stable on lisinopril and metoprolol Hypotestosteronism 49871 99423 104 R79.89 will need to rechkeck levels next lab Abdominal aortic aneurysm screening 373503284 Z13.6 will order Hepatitis C screening 41 6559531 Z11.59 Ischemic h eart disease 220934609 I25.9 having some dyspnea not sure if related to cardiac status and will have him see cardiology for it.. Cramp in lower limb 4499 97568 R25.2 [id number] Yuniel Hobson RosauraDO [facility] Medicine [address] [place] [address],[place] [address] 05/31/2018 10:25:20 05/31/2018 16:33:34 Right side sciatica 6238397414 44744 M54.31 Atrial fibrillation 4943 6004 I48.91 [id number] Yuniel Brooks [facility] [address] [facility] [address],[place] [address] 06/18/2018 11:12:03 06/18/2018 14:17:05 Right side sciatica 2093607019 73558 M54.31 Essential hypertension 35837897 I10 [id number] Yuniel Brooks [facility] [address] [facility] [address],[place] ite [facility] [place] [address] 06/28/2018 09:03:58 06/28/2018 09:56:19 Type 2 diabetes mellitus 64634650 E11.9 a1c was 7.5 and microalbum in was negative Atrial fibrillation 4943 6004 I48.91 currently stable but still present with VR around 100 Coronary arteriosclerosis 39368425 I25.10 asymptomat ic recent eval by dr mcmullen was good except for new onset afib Blood pres sure above reference range 94399565 R03.0 stable on lisinopril and metoprolol sl elevated today 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 57842563 M51.17 seeing neurosurg today will need surgery [id number] Yuniel Brooks [facility] Internal Medicine [address] [facility] [address],[facility] [place] [address] 08/07/2018 11:39:05 08/07/2018 13:19:53 Herpes zoster 8895182 B02.9 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 may consider lidoderm in future after the lesions are all healed Atrial fibrillation 4943 6004 I48.91 27087 Yuniel Brooks [facility] Internal Medicine [address] [facility] [address],[facility] [place] [address] 10/25/2018 14:10:33 10/25/2018 14:52:18 Type 2 diabetes mellitus 01486389 E11.9 a1c was 6.5 and microalbum in was negative Atrial fibrillation 4943 6004 I48.91 currently stable but still present with VR around 100 and will have a cardiovers ion on nov 06 Hyperlipidemia 94894109 E78.5 wiill chk inext visit Eczema 53518204 L30.9 otc cortisone 18636 Yuniel Brooks [facility] Internal Medicine [address] [facility],[place] [address] 02/21/2019 09:20:43 02/21/2019 09:42:27 Atrial fibrillation 12716189 I48.91 currently stable but still present with VR around 100 and will have a cardiovers ion on nov 06 Type 2 ivania betes mellitus 02092479 E11.9 a1c was 6.5 and microalbum in was negative Gastroesop hageal reflux disease 767162344 K21.9 stable with PPI Hyperlipidemia 37227824 E78.5 LDL is 50!!! Blood pres sure above reference range 52335139 R03.0 on lisinopril and metoprolol sl elevated today will increase metoprolol Ischemic h eart disease 619075268 I25.9 having some dyspnea but not having any cp no other issues Basal cell carcinoma of scalp 691267215 C44.41 55885 Yuniel Brooks [facility] Internal Medicine [address] [facility], [place] [address] 06/02/2019 14:05:04 06/02/2019 14:59:16 Type 2 diabetes mellitus 08389350 E11.9 a1c was 6.5 and is now 7.1 relates has not gained any wgt Atrial fibrillation 4943 6004 I48.91 currently stable but still present with VR around 80- [place] 12102 Yuniel Brooks, [facility] Internal Medicine [address] [facility],[place] [address] 09/30/2019 13:23:33 09/30/2019 14:17:01 Gastroesophageal reflux disease 767611065 K21.9 stable with PPI Blood pres sure above reference range 13571145 R03.0 on lisinopril and metoprolol sl elevated today will increase metoprolol Hypotestosteronism 59369 10137 104 R79.89 will need to rechkeck levels next lab Ischemic h eart disease 491035067 I25.9 having some dyspnea but not having any cp no other issues Atrial fibrillation 4943 6004 I48.91 currently stable but still present with VR around 80- again no change no evid of palpitatio ns Type 2 ivania betes mellitus 60931550 E11.9 a1c is now 6.9 was 7.1 and was 6.5 and is doing good no wgt gain during the pandemic 60162 Yuniel Brooks [facility] Internal Medicine [address] [facility],[place] [address] 01/23/2020 09:10:29 01/23/2020 09:50:11 Type 2 diabetes mellitus 27095445 E11.9 a1c is pending was 6.9 was 7.1 and was 6.5 and is doing good no wgt gain during the pandemic Atrial fibrillation 4943 6004 I48.91 currently stable but still present with VR around 80- again no change no evid of palpitatio ns but is still in afib he needs to be seen by cardiol Hyperlipidemia 20773687 E78.5 LDL is 50!!! Ischemic h eart disease 077292476 I25.9 having some dyspnea but not having any cp no other issues needs to follow up with dr mcmullen Screening for malignant neoplasm of colon 754084812 Z12.11 cant colonoscop y due to ischemic heart disease 79219 Yuniel Brooks [facility] Internal Medicine [address] [facility],Marie it[place] [address] 05/03/2020 11:31:43 05/03/2020 12:09:00 Atrial fibrillation 63797634 I48.91 stable but was cardiovert ed 3 wks ago after being given multaq ] currently seems to be in NSR with some sl irreg but not full blown afib hard to tell without an ecg but his rate is on at 68-70 Type 2 ivania betes mellitus 33547038 E11.9 a1c is 6.4 was 6.9 was 7.1 and was 6.5 and is doing good no wgt gain during the pandemic Hyperlipidemia 26229959 E78.5 LDL is 50!!! Ischemic h eart disease 260808336 I25.9 having some dyspnea but not having any cp no other issues needs to follow up with dr mcmullen 40123 Yuniel Brooks [facility] Internal Medicine [address] [facility] [address],[place] [address] 09/17/2020 15:34:08 09/17/2020 16:00:05 Atrial fibrillation 58727251 I48.91 stable but was cardiovert ed 3 wks ago after being given multaq ] currently seems to be in NSR with some sl irreg but not full blown afib hard to tell without an ecg but his rate is on at 68-70 Type 2 ivania betes mellitus 95264169 E11.9 a1c is 6.4 was 6.9 was 7.1 and was 6.5 and is doing good no wgt gain during the pandemic Ischemic h eart disease 452786332 I25.9 having some dyspnea but not having any cp no other issues needs to follow up with dr mcmullen and will have a ett next week 03621 Yuniel Brooks [facility] Internal Medicine [address] [facility],[place] [address] 12/21/2020 14:22:02 12/21/2020 15:10:57 Type 2 diabetes mellitus 84918501 E11.9 a1c is 6.4 was 6.9 was 7.1 and was 6.5 and is doing good no wgt gain during the pandemic Atrial fibrillation 4943 6004 I48.91 stable but was cardiovert ed and remains in NSR currently seems to be in NSR with his rate is on at 68-70 Hepatitis C screening 41 2024376 Z11.59 Ischemic h eart disease 772041375 I25.9 relates he had a recent cath done last mo and had a 95% RCA and a diagnol of f the LAD at 80% no stents placed he was instead increasdd on the isosorbid to 60-mg k 83736 Yuniel Brooks [facility] Internal Medicine [address] [facility], [place] [address] 04/01/2021 08:35:38 04/01/2021 10:54:33 Type 2 diabetes mellitus 92865751 E11.9 a1c is 6.4 was 6.9 was 7.1 and was 6.5 and is doing good no wgt gain during the pandemicwi ll be looking for an eye exam Ischemic h eart disease 103015101 I25.9 relates he had a recent cath done last mo and had a 95% RCA and a diagnol of f the LAD at 80% no stents placed he was instead increasdd on the isosorbid to 60-mg k Blood pres sure above reference range 12338203 R03.0 on lisinopril and metoprolol sl elevated today will increase metoprolol Coronary arteriosclerosis 84401207 I25.10 asymptomat ic recent eval by dr mcmullen was good except for new onset afib Atrial fibrillation 4943 6004 I48.91 stable but was cardiovert ed and remains in NSR currently seems to be in NSR with his rate is on at 68-70 Cough 93361921 R05.9 R05.2 ongoing for months no fever no chills etcwe will have him hold lisinopril for 5 days and call with update 52363 Yuniel Brooks DO [facility] Internal Medicine [address] [facility] [address],[place] [address] 06/24/2021 10:25:55 06/24/2021 11:06:38 Type 2 diabetes mellitus 21393225 E11.9 a1c is 6.5 and prior 6.4 was 6.9 was 7.1 and was 6.5 and is doing good no wgt gain during the pandemicwi ll be looking for an eye exam Ischemic h eart disease 514265990 I25.9 relates he had a recent cath done lastyear and had a 95% RCA and a diagnol of f the LAD at 80% no stents placed he was instead increasdd on the isosorbid to 60-mg k Atrial fibrillation 4943 6004 I48.91 stable but was cardiovert ed and remains in NSR currently seems to be in NSR with his rate is on at 68-70 Depression screening 171 106993 Z13.31 phq9 score of 0 Intermitte nt claudication 31938912 I73.9 now on pletal daily just started 32356 DO Bob Daniel Internal Medicine [address] [facility] [address],[place] [address] 10/07/2021 09:50:42 10/07/2021 12:38:52 Adult health examination 327030572 Z00.00 noted doing ok otherwiser eviewed ct angio with pt Screening for cardiovascular system disease 288332199 Z13.6 he will cont on atorvastat in Screening for malignant neoplasm of colon 764365549 Z12.11 cant colonoscop y due to ischemic heart disease Atrial fibrillation 4943 6004 I48.91 stable but was cardiovert ed and remains in NSR currently seems to be in NSR with his rate is on at 68-70 Active or passive immunization 845095589 Z23 will consider [id number] Type 2 ivania betes mellitus 42781442 E11.9 a1c is 6.4 ane was 6.5 and prior 6.4 was 6.9 was 7.1 and was 6.5 and is doing good no wgt gain during the pandemicwa iting for eye exam Ischemic h eart disease 217978649 I25.9 relates he had a recent cath done las t year and had a 95% RCA and a diagnol of f the LAD at 80% no stents placed he was instead increased on the isosorbid to 60-mg k metoprolol will be decreased tp 50 due to fatigue and bradycardi a and see how he does 45905 Yuniel Brooks DO [facility] Internal Medicine [address] [facility],[place] [address] 01/23/2022 11:34:48 01/23/2022 13:48:39 Blood pressure above reference range 98153067 R03.0 on lisinopril and metoprolol sl elevated today will increase metoprolol Type 2 ivania betes mellitus 97065161 E11.9 a1c is 6.4 ane was 6.5 and prior 6.4 was 6.9 was 7.1 and was 6.5 and is doing good no wgt gain during the pandemicwa iting for eye exam Atrial fibrillation 4943 6004 I48.91 stable but was cardiovert ed and remains in NSR currently seems to be in NSR with his rate is on at 68-70 Hyperlipidemia 63199451 E78.5 LDL is 50!!! 59007 Yuniel Brooks DO [facility] Internal Medicine [address] [facility],[place] [address] 04/28/2022 10:25:58 04/28/2022 11:31:39 Blood pressure above reference range 10726743 R03.0 on lisinopril and metoprolol sl elevated today will increase metoprolol Type 2 ivania betes mellitus 85503168 E11.9 a1c is 6.4 ane was 6.5 and prior 6.4 was 6.9 was 7.1 and was 6.5 and is doing good no wgt gain during the pandemicwa iting for eye exam Coronary arteriosclerosis 67098538 I25.10 asymptomat ic recent eval by dr mcmullen was good except for new onset afib Atrial fibrillation 4943 6004 I48.91 stable but was cardiovert ed and remains in NSR currently seems to be in NSR with his rate is on at 68-70 Intermitte nt claudication 23317276 I73.9 now on pletal daily just started Degenerati on of lumbar intervertebral disc 70247076 M51.36 he has had a re-emergen ce of sx now with worsening pain in standing prolonged period of time and walking kristine stairs we will refer back to dr Mclain mri first 39917 Yuniel Brooks [facility] Internal Medicine [address] [facility],[place] [address] 07/21/2022 11:27:01 07/21/2022 13:28:45 Type 2 diabetes mellitus 79499602 E11.9 a1c is u to 12 unbelievea ble as it was just 5.2 we will increase jardiance and pt states he will stop bingeing on sweets Ischemic h eart disease 775948512 I25.9 relates he had a recent cath done las t year and had a 95% RCA and a diagnol of f the LAD at 80% no stents placed he was instead increased on the isosorbid to 60-mg k metoprolol will be decreased tp 50 due to fatigue and bradycardi a and see how he does Atrial fibrillation 4943 6004 I48.91 stable but was cardiovert ed and remains in NSR currently seems to be in NSR with his rate is on at 68-70 Blood pres sure above reference range 25730518 R03.0 on lisinopril and metoprolol and is stable Neoplasm o f right kidney 5395760638 1929446 D49.511 going for a cryofreeze procedure which will be done on august 03 86116 Yuniel Brooks [facility] Internal Medicine [address] [facility] [address],[place] [address] 10/27/2022 09:01:50 10/27/2022 10:19:23 Atrial fibrillation 26710251 I48.91 stable but was cardiovert ed and remains in NSR currently seems to be in NSR with his rate is on at 68-70 Blood pres sure above reference range 83917162 R03.0 on lisinopril and metoprolol and is stable Hypotestosteronism 72122 38375 104 R79.89 will need to rechkeck levels next lab Hyperlipidemia 17955808 E78.5 LDL is 50!!! Ischemic h eart disease 442653814 I25.9 relates he had a recent cath done last year and had a 95% RCA and a diaganol of f the LAD at 80% no stents placed he was instead increased on the isosorbid to 60-mg k metoprolol will be decreased tp 50 due to fatigue and bradycardi a and see how he does Type 2 ivania betes mellitus 20713591 E11.9 a1c did the jump again to7.9 was 5.6 just weord that this happens and he states nothing has changed with diet wgt meds so i am unsure how this happened but we will have him rechk a1c in 6 weeks ;ast year this happened: a1c is u to 12 unbelievea ble as it was just 5.2 we will increase jardiance and pt states he will stop bingeing on sweets [id number] Yuniel Brooks, [facility] Internal Medicine [address] [facility] [address],[place] [address] 02/14/2023 09:09:18 02/14/2023 09:32:46 Coronary arteriosclerosis 67969574 I25.10 asymptomat ic recent eval by dr mcmullen was good except for new onset afib Hyperlipidemia 16619776 E78.5 LDL is 50!!! Hypotestosteronism 77510 26175 104 R79.89 will need to rechkeck levels next lab Ischemic h eart disease 739490832 I25.9 relates he had a recent cath done last year and had a 95% RCA and a diaganol of f the LAD at 80% no stents placed he was instead increased on the isosorbid to 60-mg k metoprolol will be decreased tp 50 due to fatigue and bradycardi a and see how he does Type 2 ivania betes mellitus 50643264 E11.9 a1c did the jump again to7.8 was7.6 m unsure how this happened but we will have him rechk a1c in 12 weeks has lost 14 lbs since spring Hypertensive disorder 38 100807 I10 stable no changes Atrial fibrillation 4943 6004 I48.91 afib is back he is rate controlled and asymptomat icwill be seeing cardiol 1 year so we will see if he can be seen sooner [id number] Yuniel Brooks [facility] Internal Medicine [address] [facility],Marie ite D [facility] [address] 05/21/2023 11:16:33 05/21/2023 11:46:22 Atrial fibrillation 06568749 I48.91 afib is back he is rate controlled and asymptomat icwill be seeing cardiol 1 year so we will see if he can be seen sooner Gastroesop hageal reflux disease 499206645 K21.9 stable with PPI only occ now Blood pres sure above reference range 58206032 R03.0 on lisinopril and metoprolol and is stable Hyperlipidemia 07105735 E78.5 LDL is 50!!! Hypertensive disorder 38 757107 I10 stable no changes Hypotestosteronism 52041 43655 104 R79.89 will need to rechkeck levels next lab Ischemic h eart disease 557013301 I25.9 relates he had a recent cath done last year and had a 95% RCA and a diaganol of f the LAD at 80% no stents placed he was instead increased on the isosorbid to 60-mg k metoprolol will be decreased tp 50 due to fatigue and bradycardi a and see how he does Type 2 ivania betes mellitus 34472373 E11.9 a1c did the jump again to7.8 was7.6 m unsure how this happened but we will have him rechk a1c in 12 weeks has lost 14 lbs since spring Congestive heart failure 53820761 I50.9 484996 Yuniel Brooks [facility] Internal Medicine [address] [facility],Marie ite D [facility] [address] 10/02/2023 08:34:13 10/04/2023 11:48:19 Adult health examination 030164474 Z00.01 noted doing ok otherwiser eviewed ct angio with pt Depression screening 171 414279 Z13.31 phq9 score of 0 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 we are going to try to get him an inversion table to take some of the pressure off of the discs and provide him some relief this is because the surgeon recc he do neck and spine stretches with PT but this was never done Hypertensive disorder 38 714768 I10 stable no changes Type 2 ivania betes mellitus 36147477 E11.9 a1c did the jump again to 8.2 was down at 7.8 was7.6 m unsure how this happened but we will have him rechk a1c in 12 weeks has lost 14 lbs since spring367 Yuniel Brooks, [facility] Internal Medicine [address] [facility],[place] [address] 01/01/2024 13:39:04 01/01/2024 14:23:16 Depression screening 076804492 Z13.31 phq9 score of 0 Atrial fibrillation 4943 6004 I48.91 afib is back he is rate controlled and asymptomat icwill be seeing cardiol 1 year so we will see if he can be seen sooner Coronary arteriosclerosis 15108576 I25.10 asymptomat ic recent eval by dr mcmullen was good except for new onset afib Hypertensive disorder 38 011493 I10 stable no changes Lumbar spo ndylosis with myelopathy 84906867 M47.16 we are going to try to get him an inversion table to take some of the pressure off of the discs and provide him some relief this is because the surgeon recc he do neck and spine stretches with PT but this was never done will provid e with hydrocodon e Intermitte nt claudication 69342729 I73.9 now on pletal daily just started Type 2 ivania betes mellitus 98096378 E11.9 a1c did the jump again to 8.2 was down at 7.8 was7.6 m unsure how this happened but we will have him rechk a1c in 12 weeks has lost 14 lbs since spring Insomnia 044892919 G47.0 0 will try the trazodone 986212 Yuniel Brooks [facility] Internal Medicine [address] [facility],[place] [address] 04/09/2024 09:20:20 04/09/2024 10:18:37 Atrial fibrillation 63330828 I48.91 afib is back he is rate controlled and [place] be seeing cardiol 1 year so we will see if he can be seen sooner Hypertensive disorder 38 386779 I10 stable no changes Ischemic h eart disease 237290807 I25.9 asymptomat ic relates he had a recent cath done last year and had a 95% RCA and a diaganol of f the LAD at 80% no stents placed he was instead increased on the isosorbid to 60-mg k metoprolol will be decreased tp 50 due to fatigue and bradycardi a and see how he does Type 2 ivania betes mellitus 34758990 E11.9 a1c did the jump again to 9.4 was 8.2 was down at 7.8 was7.6 m unsure how this happened but we will have him rechk a1c in 12 weeks has lost 14 lbs since spring [id number] Yuniel Brooks [facility] Internal Medicine [address] [facility],Marie [employer] [place] [address] 05/09/2024 10:55:51 05/09/2024 11:33:59 Atrial fibrillation 08306017 I48.91 afib is back he is rate controlled and [place] be seeing cardiol 1 year so we will see if he can be seen sooner Hyperlipidemia 97307464 E78.5 LDL is 50!!! Hypertensive disorder 38 520972 I10 stable no changes Hypotestosteronism 52219 30895 104 R79.89 will need to rechkeck levels next lab Type 2 ivania betes mellitus 71321207 E11.9 a1c did the jump again to 9.4 was 8.2 was down at 7.8 was7.6 m unsure how this happened but we will have him rechk a1c in 12 weeksstoop metformin stop jardianceh as lost 14 lbs since spring Depression screening 171 553371 Z13.31 phq9 score of Coronary arteriosclerosis 95633437 I25.10 asymptomat ic recent eval by dr mcmullen was good except for new onset afib 843757 Yuniel Brooks [facility] Internal Medicine [address] [facility],[place] [address] 10/01/2024 09:47:56 10/01/2024 10:38:39 Screening for cardiovascular system disease 201422336 Z13.6 he will cont on atorvastat in no cp nos sob Screening for malignant neoplasm of colon 304142445 Z12.11 cant colonoscop y due to ischemic heart disease Depression screening 171 388771 Z13.31 phq9 score of Hypertensive disorder 38 332648 I10 stable no changes Atrial fibrillation 4943 6004 I48.91 afib is back he is rate controlled and asymptomat tonill be seeing cardiol 1 year so we will see if he can be seen sooner Hyperlipidemia 35195712 E78.5 LDL is 50!!! Type 2 ivania betes mellitus 74013042 E11.9 a1c is pending did the jump again to 9.4 was 8.2 was down at 7.8 was7.6 m unsure how this happened but we will have him rechk a1c in 12 weeksstoop metformin stop jardianceh as lost 14 lbs since spring Preventive procedure 169 929310 Z00.00 53380508 noted doing ok otherwiser eviewed ct angio with pt Nocturia 005358734 R35.1 46986911 some poss apnea? urol wants sleep study Daytime somnolence 87096 36748 00 R40.0 6891077 needs sleep study Degenerati on of lumbosacral intervertebral disc 85317352 M51.370 [id number] Health Concerns Section Related Observation LastModified by Organization Detai ls LastModified Time None Recorded Concern Status LastModified by Organization Details LastModified Time None Recorded Advance Directives Directive None Recorded Payers Insurance Date Sequence Insurance Name Policy Number Policy Urbina Covered Member ID Urbina Member ID Guarantor Name 10/01/2024 1 [place]: [employer] Harpreet Ross [id number] Harpreet Ross 10/01/2024 2 [employer] Harpreet Ross [id number] Harpreet Ross 10/01/2024 2 [employer] - SENIOR PLAN (MEDICARE SUPPLEMENT) Harpreet Ross [id number] Harpreet Ross Notes Date Note Type Note Provider Name and Address Organization Details Recorded Time 024 text/ht ml Medicare Annual Wellness VisitReported by PatientSocial/Behavioral HistoryFor diet and nutrition, patient reportshealthy diet. For fracture risk, patient reportsno history of fractures,no recent explained fracture,no sudden unexplained fractures, andno previous musculoskeletal injuries. For physical activity, patient reportsexercises on a regular basis,recent increase in physical activity, andgood physical condition.Mental Status:For depression risk, patient reportsnever feels sad, empty, or tearful,no loss of interest in activities,no significant changes in weight,no sleep disturbances or insomnia,no agitation,no loss of energy,no feelings of worthlessness or guilt,no thoughts of suicide,no history of depression, andno history of mood disorders. For orientation, patient reportsno disorientation to time,no disorientation to date, andno disorientation to place. For concentration and memory, patient reportsno decreased concentrating ability,no memory lapses or loss, anddoes not forget words. For speech/motor difficulties, patient reportsno speech difficulties,no difficulty expressing formulated concepts,no difficulty with fine manipulative tasks,no difficulty writing/copying,no slowed reaction time, anddoes not knock things over when trying to pick them up.Functional AbilityFor hearing, patient reportsno loss of hearing. For vision, patient reportsno vision problems. For activities of daily living, patient reportsable to bathe with limited or no assistance,able to contol urination and bowels,able to dress with limited or no assistance,able to feed self with limited or no assistance,able to get out of chair or bed with limited or no assistance,able to groom with limited or no assistance, andable to toilet with limited or no assistance. For instrumental activities of daily living, patient reportsable to do house work with limited or no assistance,able to grocery shop with limited or no assistance,able to manage medications with limited or no assistance,able to manage money with limited or no assistance,able to prepare meals with limited or no assistance, andable to use the phone with limited or no assistance. For falls risk assessment, patient reportsno frequent falls while walking,no fall in the past year,no fall since last visit, andno dizziness/vertigo. For home safety, patient reportsno unsafe finn hazzards,no unsafe stairs,no unsafe gas appliances,working smoke/co detectors,wears protective head gear for biking/high velocity,use of seatbelts,practicing 'safer sex',no vision or hearing loss while driving,no fire arms,has hand bars in the bathroom/shower, andgood lighting in the home.ROS as noted in the HPI relates having a great deal of discomfort when swalking or bending state this is affecting his ADL's and makes his life miserable at timespain is his typical back pain with noted increased disomfort with activity despite 2 prior procedures Yuniel Brooks, [address] [place], [address], [facility] 10/02/2023 23:27:50 024 text/ht ml ROS as noted in the HPI here for rechkl and is doing okno major issues except his badck and leg pain can only walk a good 50 ft an d has to sit down Yuniel Brooks DO [address] [place], [address], [facility] 01/01/2024 14:21:54 025 text/ht ml Care Management - Coronary Artery Disease (CAD)Reported by [facility] care, patient reportsnot under emotional stress. For severity, patient reportssymptoms are improvinganddoes not interfere with daily activities. For associated symptoms, patient reportsno chest pain,no shortness of breath,no left arm pain,no back pain,no neck pain,no left shoulder pain,no right shoulder pain,no numbness, andno sweats. Care Management - DiabetesReported by [facility] care, patient reportsseeing eye doctor yearly for dilated eye exam,checking feet regularly,normal range of home blood sugars (in the low 100s), andno side effects from medications. For associated symptoms, patient reportssymptoms are usually well controlled,no fatigue,no dizziness,no excessive sweating,no headaches,no confusion,no increased thirst,no increased appetite,no increased urination,no blurred vision,no numbness of feet, andno calluses on feet. Care Management - HypertensionReported by [facility], patient reportsnot under emotional stress. For severity, patient reportssymptoms are improvinganddoes not interfere with daily activities. For associated symptoms, patient reportsno dizziness,no lightheadedness,no chest pain,no shortness of breath,no palpitations,no edema,no calf muscle cramps,no blurred vision,no confusion,no headaches, andno fatigue.ROS as noted in the HPI here for rechkand is doing ok overallrelates no change in diet and no cp no sobreviewed lab and a1c has climbed to 9.4 from 8on metformin and jardiance Yuniel Brooks, [address] [place], [address], [facility] 04/09/2024 10:03:35 025 text/ht ml Care Management - Coronary Ar[facility] Disease (CAD)[facility], patient reportsnot under emotional stress. For severity, patient reportssymptoms are improvinganddoes not interfere with daily activities. For associated symptoms, patient reportsno chest pain,no shortness of breath,no left arm pain,no back pain,no neck pain,no left shoulder pain,no right shoulder pain,no numbness, andno sweats. Care Management - HypertensionReported by [facility], patient reportsnot under emotional stress. For severity, patient reportssymptoms are improvinganddoes not interfere with daily activities. For associated symptoms, patient reportsno dizziness,no lightheadedness,no chest pain,no shortness of breath,no palpitations,no edema,no calf muscle cramps,no blurred vision,no confusion,no headaches, andno fatigue. Care Management - DiabetesReported by [facility] care, patient reportsseeing eye doctor yearly for dilated eye exam,checking feet regularly,normal range of home blood sugars (in the low 100s), andno side effects from medications. For associated symptoms, patient reportssymptoms are usually well controlled,no fatigue,no dizziness,no excessive sweating,no headaches,no confusion,no increased thirst,no increased appetite,no increased urination,no blurred vision,no numbness of feet, andno calluses on feet.ROS as noted in the HPI Yuniel Brooks DO [address] [place], [address], [facility] 05/09/2024 11:31:52 025 text/ht ml Care Management - HypertensionReported by PatientHPIFor self care, patient reportsnot under emotional stress. For severity, patient reportssymptoms are improvinganddoes not interfere with daily activities. For associated symptoms, patient reportsno dizziness,no lightheadedness,no chest pain,no shortness of breath,no palpitations,no edema,no calf muscle cramps,no blurred vision,no confusion,no headaches, andno fatigue. Care Management - DiabetesReported by PatientHPIFor self care, patient reportsseeing eye doctor yearly for dilated eye exam,checking feet regularly,normal range of home blood sugars (in the low 100s), andno side effects from medications. For associated symptoms, patient reportssymptoms are usually well controlled,no fatigue,no dizziness,no excessive sweating,no headaches,no confusion,no increased thirst,no increased appetite,no increased urination,no blurred vision,no numbness of feet, andno calluses on feet. Care Management - Atrial FibrillationReported by PatientCare ManagementFor medications, patient reportscompliant with medication. For prior imaging, patient reportsechocardiogramandrecent ecg.Interim HistoryFor associated symptoms, patient reportsno dizziness,no chest pain,no easy bruisability, andno rapid heart rate. Care Management - HyperlipidemiaReported by PatientHPIFor control, patient reportsusually well controlled,improving, andat goal. For complications, patient reportsno coronary artery disease,no heart attack,no cardiovascular disease,no pancreatitis, andno stroke. Medicare Annual Wellness VisitReported by PatientSocial/Behavioral HistoryFor diet and nutrition, patient reportshealthy diet. For fracture risk, patient reportsno history of fractures,no recent explained fracture,no sudden unexplained fractures, andno previous musculoskeletal injuries. For physical activity, patient reportsexercises on a regular basis,recent increase in physical activity, andgood physical condition.Mental Status:For depression risk, patient reportsnever feels sad, empty, or tearful,no loss of interest in activities,no significant changes in weight,no sleep disturbances or insomnia,no agitation,no loss of energy,no feelings of worthlessness or guilt,no thoughts of suicide,no history of depression, andno history of mood disorders. For orientation, patient reportsno disorientation to time,no disorientation to date, andno disorientation to place. For concentration and memory, patient reportsno decreased concentrating ability,no memory lapses or loss, anddoes not forget words. For speech/motor difficulties, patient reportsno speech difficulties,no difficulty expressing formulated concepts,no difficulty with fine manipulative tasks,no difficulty writing/copying,no slowed reaction time, anddoes not knock things over when trying to pick them up.Functional AbilityFor hearing, patient reportsno loss of hearing. For vision, patient reportsno vision problems. For activities of daily living, patient reportsable to bathe with limited or no assistance,able to contol urination and bowels,able to dress with limited or no assistance,able to feed self with limited or no assistance,able to get out of chair or bed with limited or no assistance,able to groom with limited or no assistance, andable to toilet with limited or no assistance. For instrumental activities of daily living, patient reportsable to do house work with limited or no assistance,able to grocery shop with limited or no assistance,able to manage medications with limited or no assistance,able to manage money with limited or no assistance,able to prepare meals with limited or no assistance, andable to use the phone with limited or no assistance. For falls risk assessment, patient reportsno frequent falls while walking,no fall in the past year,no fall since last visit, andno dizziness/vertigo. For home safety, patient reportsno unsafe finn hazzards,no unsafe stairs,no unsafe gas appliances,working smoke/co detectors,wears protective head gear for biking/high velocity,use of seatbelts,practicing 'safer sex',no vision or hearing loss while driving,no fire arms,has hand bars in the bathroom/shower, andgood lighting in the home.ROS as noted in the HPI here for nikik and a medical wellness Yuniel Brooks, DO [address] [facility], [place], [address], [facility] 10/01/2024 10:33:48
--- OUTSIDE RECORDS SUMMARY | 2024-12-19 10:57 | XMS_ITS | Encounter Summary ---
Author Organization [facility] Address [address] [place] [address] Phone Care Team Providers Care Supervisor Frame Assembly Name Role Phone Yuniel Kaplan Primary Care Provider [phone] Encounter Details Date Type Department Care Team (Late st Contact Info) Description 11/07/2022 Procedure Pass [facility], Ct Scan - [address] [address] Social History Tobacco Use Types Packs/Day Years [...] Contact Info) Description 06/20/2024 Procedure Pass [address] [address] 12/22/2024 9:15 AM EDT Appointment [address] [address] Mak Penaloza MD [address] [place] [address] [email or web address] 01/07/2025 10:30 AM EST Office Visit [facility] [address] [place] [address] 3rd Floor, [address] [place] [address] Baltazar Summers MD [address] [place] [address], [address] [address] [email or web address] documented as of this encounter Visit Diagnoses Not on filedocumented in this encounter Care Teams Supervisor Frame Assembly Relationship Specialty Start Date End Date Yuniel Kaplan DO PCP - General Internal Medicine 03/15/18 documented as of this encounter Additional Source Comments The information contained in this document represents components of the legal health record. It is not the complete legal health record.[facility]
--- OUTSIDE RECORDS SUMMARY | 2024-12-19 10:57 | XMS_ITS | Encounter Summary ---
[facility] Address [address] [place] [address] Care Team Providers Care Jig Inspector Name Role Phone Yuniel Kaplan DO Primary Care Provider [phone] Encounter Details Date Type Department Care Team (Late st Contact Info) Description 02/22/2024 Lab Requisition [facility] - Main Lab [address] [place] [address] Corazon Avina MD [address] [place] [address] Frequency of micturition Social History Tobacco Use [...] Gram Positive Cocci(A) 02/24/2024 9:52 AM EST [facility] Comment: The organism value for this result has been updated. These results have been appended to the previously preliminary verified report. Urine Urine specimen from urinary conduit / Unknown 02/22/2024 1:05 PM EST 02/22/2024 1:10 PM EST us Corazon Avina MD LAB MICROBIOLOGY - GENER AL ORDERABLES Final Result Performing Organization Address City/State/[facility] Co de Phone Number [facility] [address] [place] [address], documented in this encounter Visit Diagnoses Diagnosis Frequency of micturition Urinary frequency documented in this encounter Care Teams Jig Inspector Relationship Specialty Start Date End Date Yuniel Kaplan DO [address] [facility] [address] [place], [place] PCP - General 05/22/22 documented as of this encounter
--- OUTSIDE RECORDS SUMMARY | 2024-12-19 10:57 | XMS_ITS | Encounter Summary ---
Author Organization [facility] Address [address] [place] [address] Phone Care Team Providers Care Offset Press Assistant Name Role Phone Yuniel Kaplan Primary Care Provider [phone] Reason for Referral * MRI/CAT Scan - Closed Specialty Diagnoses / Procedures Referred By Zafar montalvo Referred To Contact Radiology Diagnoses Right sided sciatica Procedures MRI Lumbar Spine Zainab Carty CNP Phone: tel: fax: [email or web address] Referral ID Status Reason Start Date Expiration Date Visits Re quested Visits Authorized [id number] Closed 06/18/2018 06/18/2019 1 1 Encounter Details Date Type Department Care Team (Latest Contact Info) Description 06/18/2018 Transcribe Orders Virtual Department [address] [place] [address] Zainab Carty CNP [address] [place] [address] Right sided sciatica (Primary Dx) Social History Tobacco Use Types [...] st Contact Info) Description 06/20/2024 Procedure Pass [address] [address] 12/22/2024 9:15 AM EDT Appointment [address] [address] Mak Penaloza MD [address] [place] [address] 01/07/2025 10:30 AM EST Office Visit [facility] [address] [place] [address] 3rd Floor, [address] [place] [address] Baltazar Summers MD [address] [place] [address] [email or web address] documented as of this encounter Results * MRI LUMBAR SPINE (NEURO) WITHOUT CONTRAST (06/25/2018 7:28 AM EDT) Anatomical Region Laterality Modality L-spine Magnetic Resonan ce 06/25/2018 6:35 PM EDT Impressions 06/26/2018 10:35 AM EDT 1. Large disc extrusion at L4-L5 impinging upon and markedly displacing the right L5 nerve in the lateral recess prior to entering the neural foramen. There is also mass effect and mild posterior displacement of the left L5 nerve. 2. Diffuse disc bulging at L5-S1 with ridgelike spurring more pronounced laterally on the left resulting in moderate to severe left neural foraminal stenosis. 3. Moderate right neural foraminal stenosis at L2-L3 and L3-L4. Moderate right greater than left bilateral neural foraminal stenosis at L4-L5. 4. Right renal 5.1 cm cyst. POS - [id number] Edited by: Jeana Murillo on 06/26/2018 9:47 AM Narrative 06/26/2018 10:35 AM EDT MRI LUMBAR SPINE (NEURO) WITHOUT CONTRAST, HISTORY: Right-sided sciatica. COMPARISON: 11/25/2006 lumbar spine MRI. TECHNIQUE: Exam performed on a 1.5 Martha high-field MRI scanner. Sagittal T1, T2 and STIR, axial T1 and T2 sequences were obtained. FINDINGS: The conus terminates at the superior L1 level and is normal. There is no prevertebral or paravertebral mass or fluid. There is no acute fracture or bone marrow edema. Lumbar vertebrae are normal in height and alignment. Degenerative endplate fatty signal changes at L5-S1. Small focal T1 and T2 dark signal focus within the right inferior L3 vertebrae, unchanged compared with the prior study, likely benign bone island or small Schmorl's node. There is moderate loss of disc height at T12-L1, mild loss of disc height L1-L5 and marked loss of disc height at L5-S1. Degenerative disc desiccation is most pronounced at L5-S1. There are mild to moderate facet degenerative hypertrophic changes L3-S1 bilaterally. There is a 5.1 cm round T2 hyperintense cyst in the interpolar region of the right kidney. Evaluation of the individual disc levels as follows: T12-L1: No disc herniation. No significant central canal or neural foraminal stenosis. L1-L2: Mild diffuse disc bulging/posterior ridgelike spurring asymmetric to the right. Mild indentation upon the anterior thecal sac, without significant canal narrowing. Mild to moderate right neural foraminal stenosis. No narrowing of the left neuroforamen. L2-L3: Mild diffuse disc bulging asymmetric to the right. Mild bilateral facet hypertrophic changes. There is mild indentation upon the anterior thecal sac resulting in mild canal stenosis, moderate right neural foraminal stenosis. No narrowing of the left neural foramen. L3-L4: There is mild diffuse disc bulging with mild posterior ridgelike spurring, bulging into the neural foramen bilaterally. Bilateral degenerative facet hypertrophic changes. There is mild canal stenosis, moderate right neural foraminal stenosis and mild left neural foraminal stenosis. L4-L5: There is diffuse disc bulging with a superimposed large central, right paracentral and right lateral recess disc extrusion, disc extruding inferior. Measurements of the disc extrusion are 1.6 cm (craniocaudal) x 1.9 cm (transverse) x 1.1 cm (AP). There are bilateral facet hypertrophic changes and posterior ligamentous thickening. There is compression upon and marked posterior displacement of the right L5 nerve in the right lateral recess (6:24). Disc also contacts and mildly displaces the left L5 nerve in the lateral recess. There is moderate right greater than left neural foraminal stenosis. L5-S1: There is diffuse disc bulging with posterior ridgelike spurring, more pronounced laterally on the left. There are bilateral degenerative facet hypertrophic changes. Together, findings result in mild right and moderate to severe left neural foraminal stenosis and mild canal stenosis. Procedure Note Criss Pichardo MD - 06/26/2018 MRI LUMBAR SPINE (NEURO) WITHOUT CONTRAST, HISTORY: Right-sided sciatica. COMPARISON: 11/25/2006 lumbar spine MRI. TECHNIQUE: Exam performed on a 1.5 Martha high-field MRI scanner. SagittalT1, T2 and STIR, axial T1 and T2 sequences were obtained. FINDINGS: The conus terminates at the superior L1 level and is normal. There is noprevertebral or paravertebral mass or fluid. There is no acute fracture orbone marrow edema. Lumbar vertebrae are normal in height and alignment. Degenerative endplatefatty signal changes at L5-S1. Small focal T1 and T2 dark signal focuswithin the right inferior L3 vertebrae, unchanged compared with the priorstudy, likely benign bone island or small Schmorl's node. There is moderate loss of disc height at T12-L1, mild loss of disc heightL1-L5 and marked loss of disc height at L5-S1. Degenerative discdesiccation is most pronounced at L5-S1. There are mild to moderate facet degenerative hypertrophic changes L3- Q6qbwwomyziry. There is a 5.1 cm round T2 hyperintense cyst in the interpolar region ofthe right kidney. Evaluation of the individual disc levels as follows: T12-L1: No disc herniation. No significant central canal or neuralforaminal stenosis. L1-L2: Mild diffuse disc bulging/posterior ridgelike spurring asymmetricto the right. Mild indentation upon the anterior thecal sac, withoutsignificant canal narrowing. Mild to moderate right neural foraminalstenosis. No narrowing of the left neuroforamen. L2-L3: Mild diffuse disc bulging asymmetric to the right. Mild bilateralfacet hypertrophic changes. There is mild indentation upon the anteriorthecal sac resulting in mild canal stenosis, moderate right neuralforaminal stenosis. No narrowing of the left neural foramen. L3-L4: There is mild diffuse disc bulging with mild posterior ridgelikespurring, bulging into the neural foramen bilaterally. Bilateraldegenerative facet hypertrophic changes. There is mild canal stenosis,moderate right neural foraminal stenosis and mild left neural foraminalstenosis. L4-L5: There is diffuse disc bulging with a superimposed large central,right paracentral and right lateral recess disc extrusion, disc extrudinginferior. Measurements of the disc extrusion are 1.6 cm (craniocaudal) x1.9 cm (transverse) x 1.1 cm (AP). There are bilateral facet hypertrophicchanges and posterior ligamentous thickening. There is compression uponand marked posterior displacement of the right L5 nerve in the rightlateral recess (6:24). Disc also contacts and mildly displaces the left [id number] in the lateral recess. There is moderate right greater than leftneural foraminal stenosis. L5-S1: There is diffuse disc bulging with posterior ridgelike spurring,more pronounced laterally on the left. There are bilateral degenerativefacet hypertrophic changes. Together, findings result in mild right andmoderate to severe left neural foraminal stenosis and mild canalstenosis. IMPRESSION: 1. Large disc extrusion at L4-L5 impinging upon and markedly displacingthe right L5 nerve in the lateral recess prior to entering the neuralforamen. There is also mass effect and mild posterior displacement of theleft L5 nerve. 2. Diffuse disc bulging at L5-S1 with ridgelike spurring more pronouncedlaterally on the left resulting in moderate to severe left neuralforaminal stenosis. 3. Moderate right neural foraminal stenosis at L2-L3 and L3-L4. Moderateright greater than left bilateral neural foraminal stenosis at L4-L5. 4. Right renal 5.1 cm cyst. POS - [id number] Edited by: Jeana Murillo on 06/26/2018 9:47 AM Zainab Carty TRACE EVIDENCE TECHNICIAN IMG MR XSPECIALTY Final Res ult documented in this encounter Visit Diagnoses Diagnosis Right sided sciatica- Primary Sciatica Right sided sciatica Sciatica documented in this encounter Care Teams Offset Press Assistant Relationship Specialty Start Date End Date KenyattaYuniel joiner [email or web address] PCP - General Internal Medicine 03/15/18 documented as of this encounter Additional Source Comments The information contained in this document represents components of the legal health record. It is not the complete legal health record.[facility]
--- OUTSIDE RECORDS SUMMARY | 2024-12-19 10:57 | XMS_ITS | Encounter Summary ---
Author Organization [facility] Address [address] [place] [address] Phone Care Team Providers Care Grain Shoveler Name Role Phone Yuniel Kaplan Primary Care Provider [phone] Encounter Details Date Type Department Care Team (Late st Contact Info) Description 06/18/2018 Procedure Pass [address] [address] Social History Tobacco Use Types Packs/Day Years Used Date Smoking Tobacco: Never Assessed Sex and Gender Information Value Date Recorded Sex Assigned at Male 07/28/2018 11:16 AM EDT Legal Sex Male 10:02 PM EDT Gender Identity Male 07/28/2018 11:16 AM EDT Sexual Orientation Not on file documented as of this encounter Last Filed Vital Signs Vital Sign Reading Time Taken Comments Blood Pressure - - Pulse - - Temperature - - Respiratory Rate - - Oxygen Saturation - - Inhaled Oxygen Concentration - - Weight 102.1 kg (225 lb) 06/19/2018 1:38 PM EDT Height 172.7 cm (5' 8 ) 06/19/2018 1:38 PM EDT Body Mass Index 34.21 06/19/2018 1:38 PM EDT documented in this encounter Plan of Treatment Upcoming Encounters Date Type Department Care Team (Late st Contact Info) Description 06/20/2024 Procedure Pass [address] [address] 12/22/2024 9:15 AM EDT Appointment [address] [place] [address] Mak Penaloza MD [address] [place] [address] [email or web address] 01/07/2025 10:30 AM EST Office Visit [facility] [address] [place] [address] 3rd Floor, [address] [place] [address] Baltazar Summers MD [address] [place] [address], [address] [address] documented as of this encounter Visit Diagnoses Not on filedocumented in this encounter Care Teams Grain Shoveler Relationship Specialty Start Date End Date Yuniel Kaplan DO PCP - General Internal Medicine 03/15/18 documented as of this encounter Additional Source Comments The information contained in this document represents components of the legal health record. It is not the complete legal health record.[facility]
--- OUTSIDE RECORDS SUMMARY | 2024-12-19 10:58 | XMS_ITS | Encounter Summary ---
Author Organization [facility] Address [address] [place] [phone] Phone Care Team Providers Care Rubber Roller Grinder Name Role Phone Yuniel Kaplan Primary Care Provider [phone] Encounter Details Date Type Department Care Team (Late Contact Info) Description 07/06/2022 Procedure Pass [facility] Cardiovascular And Interventional Radiology [address] [place] [address] Social History Tobacco Use Types Packs/Day Years Used Date Smoking Tobacco: Former Cigarettes Q uit: 2012 Smokeless Tobacco: Never Alcohol Use Standard Drinks/Week Comments Never 0 (1 standard drink = 0.6 oz pur e alcohol) Education Answer Date Recorded Are you interested in more education? Not on alcon e 06/30/2022 Are you concerned about learning? Not on file 06/30/2022 No 06/30/2022 No 06/30/2022 Sex and Gender Information Value Date Recorded Sex Assigned at Male 07/28/2018 11:16 AM EDT Legal Sex Male 10:02 PM EDT Gender Identity Male 07/28/2018 11:16 AM EDT Sexual Orientation Not on file documented as of this encounter Plan of Treatment Upcoming Encounters Date Type Department Care Team (Late Contact Info) Description 06/20/2024 Procedure Pass [address] [address] 12/22/2024 9:15 AM EDT Appointment [address] [address] Mak Penaloza MD [address] [place] [address] 01/07/2025 10:30 AM EST Office Visit [facility] [address] [place] [address] 3rd Floor, [address] [place] [address] Baltazar Summers MD [address] [place] [address], [address] [address] documented as of this encounter Visit Diagnoses Not on filedocumented in this encounter Care Teams Rubber Roller Grinder Relationship Specialty Start Date End Date Yuniel Kaplan DO [email or web address] PCP - General Internal Medicine 03/15/18 documented as of this encounter Additional Source Comments The information contained in this document represents components of the legal health record. It is not the complete legal health record.[facility]
--- OUTSIDE RECORDS SUMMARY | 2024-12-19 10:58 | XMS_ITS | Encounter Summary ---
Author Organization [facility] Address [address] [place] [address] Drive [address] [place] [address] Phone Care Team Providers Care Bonding And Composite Fabricator Name Role Phone KenyattaYuniel joiner Jacky RICARDO Primary Care Provider [phone] Reason for Referral * MRI/CAT Scan - Closed Specialty Diagnoses / Procedures Referred By Zafar t Referred To Contact Radiology Diagnoses Other intervertebral disc degeneration, lumbar region with discogenic back pain and lower extremity pain Procedures MRI Lumbar Spine Sophie Moore PA [address] [facility] [place] [address] [place] [address] Phone: tel: fax: Referral ID Status Reason Start Date Expiration Date Visits Re quested Visits Authorized [id number] Closed 10/07/2024 10/07/2025 1 1 Encounter Details Date Type Department Care Team (Latest Contact Info) Description 10/07/2024 Transcribe Orders Virtual Department [address] [place] [address] Sophie Moore PA [address] [facility] [place] [address] [place] [address] Other intervertebral disc degeneration, lumbar region with discogenic back pain and lower extremity pain (Primary Dx) Social History Tobacco Use Types [...] st Contact Info) Description 06/20/2024 Procedure Pass [address] [address] 12/22/2024 9:15 AM EDT Appointment [address] [address] Mak Penaloza MD [address] [place] [address] 01/07/2025 10:30 AM EST Office Visit [facility] [address] [place] [address] 3rd Floor, [address] [place] [address] Baltazar Summers MD [address] [place] [address], [address] [place] [phone] [email or web address] documented as of this encounter Results * MRI LUMBAR SPINE (NEURO) WITHOUT CONTRAST (10/18/2024 10:29 AM EDT) Anatomical Region Laterality Modality L-spine Magnetic Resonan ce 10/21/2024 8:13 AM EDT Impressions 10/21/2024 8:21 AM EDT Postoperative change for right hemilaminectomy at L4-5 with decompression of the right subarticular zone. Lumbar degenerative disc disease as above with comparison to the June 25, 2018 lumbar spine MRI. Narrative 10/21/2024 8:21 AM EDT MRI LUMBAR SPINE (NEURO) WITHOUT CONTRAST Referring clinician's provided indication for this examination in Epic: Outside Radiology Order; degeneration disc TECHNIQUE: MRI LUMBAR SPINE (NEURO) WITHOUT CONTRAST Multi-sequence, multi-planar MRI of the lumbar spine was performed without intravenous contrast. COMPARISON: MR lumbar spine June 25, 2018 FINDINGS: LUMBAR SPINE: Alignment and Vertebrae: No lumbar compression fracture or spondylolisthesis. Marrow: No bone marrow replacing lesion. Discs and Endplates: There is moderate intervertebral disc height loss at L4-5 and L5-S1. There is mild disc height loss at the other lumbar levels. Conus: The conus terminates at the T12 level. The conus is normal in signal intensity. Soft Tissues: Normal. No prevertebral edema. Other Findings: None. Findings by level: T12-L1: No spinal canal or neural foraminal narrowing. L1-L2: There is a disc bulge and facet arthropathy without spinal canal narrowing. There is mild left and moderate right neural foraminal narrowing. The degree of left neural foraminal narrowing appears slightly worse from the prior study. L2-L3: There is mild spinal canal narrowing due to disc bulge and facet arthropathy. There is moderate bilateral neural foraminal narrowing. The left neural foraminal narrowing slightly worse from prior study. L3-L4: There is mild spinal canal narrowing due to disc bulge and facet arthropathy. There is moderate bilateral neural foraminal narrowing. These findings appear similar the prior study. L4-L5: There is a right hemilaminectomy. There is left subarticular narrowing due to disc bulge and facet arthropathy mildly improved from the prior study. No central spinal canal narrowing. The right subarticular zone is clear. There is moderate right and severe left neural foraminal narrowing similar the prior study. L5-S1: There is a disc bulge and facet arthropathy without spinal canal narrowing. There is moderate right and severe left neural foraminal narrowing similar the prior study. Procedure Note Tunde Miner DO - 10/21/2024 MRI LUMBAR SPINE (NEURO) WITHOUT CONTRAST Referring clinician's provided indication for this examination in Epic:Outside Radiology Order; degeneration disc TECHNIQUE: MRI LUMBAR SPINE (NEURO) WITHOUT CONTRAST Multi-sequence, multi-planar MRI of the lumbar spine was performed withoutintravenous contrast. COMPARISON: MR lumbar spine June 25, 2018 FINDINGS: LUMBAR SPINE: Alignment and Vertebrae: No lumbar compression fracture orspondylolisthesis. Marrow: No bone marrow replacing lesion. Discs and Endplates: There is moderate intervertebral disc height loss atL4-5 and L5-S1. There is mild disc height loss at the other lumbarlevels. Conus: The conus terminates at the T12 level. The conus is normal insignal intensity. Soft Tissues: Normal. No prevertebral edema. Other Findings: None. Findings by level: T12-L1: No spinal canal or neural foraminal narrowing. L1-L2: There is a disc bulge and facet arthropathy without spinal canalnarrowing. There is mild left and moderate right neural foraminalnarrowing. The degree of left neural foraminal narrowing appears slightlyworse from the prior study. L2-L3: There is mild spinal canal narrowing due to disc bulge and facetarthropathy. There is moderate bilateral neural foraminal narrowing. Theleft neural foraminal narrowing slightly worse from prior study. L3-L4: There is mild spinal canal narrowing due to disc bulge and facetarthropathy. There is moderate bilateral neural foraminal narrowing. Thesefindings appear similar the prior study. L4-L5: There is a right hemilaminectomy. There is left subarticularnarrowing due to disc bulge and facet arthropathy mildly improved from theprior study. No central spinal canal narrowing. The right subarticularzone is clear. There is moderate right and severe left neural foraminalnarrowing similar the prior study. L5-S1: There is a disc bulge and facet arthropathy without spinal canalnarrowing. There is moderate right and severe left neural foraminalnarrowing similar the prior study. IMPRESSION: Postoperative change for right hemilaminectomy at L4-5 with decompressionof the right subarticular zone. Lumbar degenerative disc disease as abovewith comparison to the June 25, 2018 lumbar spine MRI. Sophie DICKSON IMG MR XSPECIALTY Final Res ult documented in this encounter Visit Diagnoses Diagnosis Other intervertebral disc degeneration, lumbar region with discogenic back pain and lower extremity pain- Primary Other intervertebral disc degeneration, lumbar region with discogenic back pain and lower extremity pain documented in this encounter Care Teams Bonding And Composite Fabricator Relationship Specialty Start Date End Date Yuniel Kaplan DO [email or web address] PCP - General Internal Medicine 03/15/18 documented as of this encounter Additional Source Comments The information contained in this document represents components of the legal health record. It is not the complete legal health record.[facility]
--- OUTSIDE RECORDS SUMMARY | 2024-12-19 10:58 | XMS_ITS | Encounter Summary ---
Author Organization [facility] Address [address] [place] [phone] Phone Care Team Providers Care Wet Machine Operator Name Role Phone Yuniel Kaplan Primary Care Provider [phone] Encounter Details Date Type Department Care Team (Late st Contact Info) Description 10/07/2024 Procedure Pass [facility], [address] [address] Social History Tobacco Use Types Packs/Day Years [...] st Contact Info) Description 06/20/2024 Procedure Pass [address] [address] 12/22/2024 9:15 AM EDT Appointment [address] [address] Mak Penaloza MD [address] [place] [address] [email or web address] 01/07/2025 10:30 AM EST Office Visit [facility] [address] [place] [address] 3rd [facility], [address] [place] [address] Baltazar Summers MD [address] [place] [address], [address] [address] [email or web address] documented as of this encounter Visit Diagnoses Not on filedocumented in this encounter Care Teams Wet Machine Operator Relationship Specialty Start Date End Date Yuniel Kaplan DO PCP - General Internal Medicine 03/15/18 documented as of this encounter Additional Source Comments The information contained in this document represents components of the legal health record. It is not the complete legal health record.[facility]
--- OUTSIDE RECORDS SUMMARY | 2024-12-19 10:58 | XMS_ITS | Encounter Summary ---
Author Organization [facility] Address [address] [place] [address] Phone Care Team Providers Care Tower Switch Operator Name Role Phone Yuniel Kaplan Primary Care Provider [phone] Encounter Details Date Type Department Care Team (Late st Contact Info) Description 02/12/2024 Procedure Pass [facility], [address] [address] Social History Tobacco Use Types Packs/Day Years [...] st Contact Info) Description 06/20/2024 Procedure Pass [address] [address] 12/22/2024 9:15 AM EDT Appointment [address] [address] Mak Penaloza MD [address] [place] [address] [email or web address] 01/07/2025 10:30 AM EST Office Visit [facility] [address] [place] [address] [address]rd [facility], [address] [place] [address] Baltazar Summers MD [address] [place] [address], [address] [address] [email or web address] documented as of this encounter Visit Diagnoses Not on filedocumented in this encounter Care Teams Tower Switch Operator Relationship Specialty Start Date End Date Yuniel Kaplan DO PCP - General Internal Medicine 03/15/18 documented as of this encounter Additional Source Comments The information contained in this document represents components of the legal health record. It is not the complete legal health record.[facility]
--- OUTSIDE RECORDS SUMMARY | 2024-12-19 10:58 | XMS_ITS | Encounter Summary ---
Author Organization [facility] Address [address] [place] [address] Phone Care Team Providers Care Consumer Insight Manager Name Role Phone Yuniel Kaplan Primary Care Provider [phone] Encounter Details Date Type Department Care Team (Late st Contact Info) Description 04/09/2020 Transcribe Orders Virtual Department [address] [place] [address] Renard Lewis MD [address] [facility] [address] [place] [address] [email or web address] Social History Tobacco Use Types Packs/Day Years [...] st Contact Info) Description 06/20/2024 Procedure Pass [address] [address] 12/22/2024 9:15 AM EDT Appointment [address] [address] Mak Penaloza MD 30 [place] [address] [email or web address] 01/07/2025 10:30 AM EST Office Visit [facility] [address] [place] [address] 3rd Floor, [address] [place] [address] Baltazar Summers MD [address] [place] [address], [address] [address] [email or web address] documented as of this encounter Visit Diagnoses Not on filedocumented in this encounter Care Teams Consumer Insight Manager Relationship Specialty Start Date End Date Yuniel Kaplan DO [email or web address] PCP - General Internal Medicine 03/15/18 documented as of this encounter Additional Source Comments The information contained in this document represents components of the legal health record. It is not the complete legal health record.[facility]
--- OUTSIDE RECORDS SUMMARY | 2024-12-19 10:58 | XMS_ITS | Encounter Summary ---
Author Organization [facility] Address [address] [place] [address] Phone Care Team Providers Care Awning Installer Name Role Phone Yuniel Kaplan Primary Care Provider [phone] Encounter Details Date Type Department Care Team (Late st Contact Info) Description 06/14/2022 Procedure Pass [facility] Cardiovascular And Interventional Radiology [address] [place] [address] Social History Tobacco Use Types Packs/Day Years [...] st Contact Info) Description 06/20/2024 Procedure Pass [address] [address] 12/22/2024 9:15 AM EDT Appointment [address] [address] Mak Penaloza MD [address] [place] [address] 01/07/2025 10:30 AM EST Office Visit [facility] [address] [facility] 3rd Floor, [address] [place] [address] Baltazar Summers MD [address] [facility], [address] [place] [address] documented as of this encounter Visit Diagnoses Not on filedocumented in this encounter Care Teams Awning Installer Relationship Specialty Start Date End Date Yuniel Kaplan DO [email or web address] PCP - General Internal Medicine 03/15/18 documented as of this encounter Additional Source Comments The information contained in this document represents components of the legal health record. It is not the complete legal health record.[facility]
--- OUTSIDE RECORDS SUMMARY | 2024-12-19 10:58 | XMS_ITS | Encounter Summary ---
Author Organization [facility] Address [address] [place] [address] Phone Care Team Providers Care Porter Marina Name Role Phone Yuniel Kaplan Primary Care Provider [phone] Encounter Details Date Type Department Care Team (Late st Contact Info) Description 04/09/2020 Procedure Pass [facility] Cardiovascular And Interventional Radiology [address] [place] [address] Social History Tobacco Use Types Packs/Day Years [...] Contact Info) Description 06/20/2024 Procedure Pass [address] [address] 12/22/2024 9:15 AM EDT Appointment [address] [address] Mak Penaloza MD [address] [place] [address] 01/07/2025 10:30 AM EST Office Visit [facility] [address] [facility] 3rd Floor, [address] [place] [address] Baltazar Summers MD [address] [facility], [address] [place] [address] documented as of this encounter Visit Diagnoses Not on filedocumented in this encounter Care Teams Porter Marina Relationship Specialty Start Date End Date Yuniel Kaplan DO [email or web address] PCP - General Internal Medicine 03/15/18 documented as of this encounter Additional Source Comments The information contained in this document represents components of the legal health record. It is not the complete legal health record.[facility]
--- OUTSIDE RECORDS SUMMARY | 2024-12-19 10:58 | XMS_ITS | Clinical Summary ---
Author Organization [facility] Address [address] [place] [address] Phone Care Team Providers Care Wired Sweatband Cutter Name Role Phone Yuniel Kaplan Primary Care Provider [phone] Allergies No known active allergies Medications apixaban (ELIQUIS) 5 mg tablet Take 5 mg by mouth 2 (two) times a day. Active atorvastatin (LIPITOR) 80 MG tablet Take 80 mg by mouth. Active lisinopril (PRINIVIL,ZESTRIL ) 20 MG tablet Take 40 mg by mouth daily. Active metFORMIN (GLUCOPHAGE) 1000 MG tablet Take 1,000 mg by mouth 2 (two) times a day with meals. Active metoprolol tartrate (LOPRESSOR) 25 MG tablet Take 50 mg by mouth daily. Active omeprazole (PRILOSEC) 20 MG capsule Take 20 mg by mouth daily. Active isosorbide mononitrate (IMDUR) 30 MG 24 hr tablet Take 30 mg by mouth daily. Active hydroCHLOROthiazi de (HYDRODIURIL) 25 MG tablet Take 25 mg by mouth daily. Active Active Problems No known active problems Encounters Date Type Department Care Team Description 10/18/2024 8:49 AM EDT - 10/18/2024 11:59 PM EDT Hospital Encounter [address] [address] Sophie Moore PA Discharge Disposition: Home or Self Care 10/07/2024 Procedure Pass [address] [place] [address] 10/07/2024 Transcribe Orders Virtual Department [address] [place] [address] Sophie Moore PA Other intervertebral disc degeneration, lumbar region with discogenic back pain and lower extremity pain (Primary Dx) 10/06/2024 9:15 AM EDT - 10/06/2024 11:59 PM EDT Hospital Encounter [facility], X-Ray - [address] [address] Yuniel Kaplan, DO Discharge Disposition: Home or Self Care 10/01/2024 Transcribe Orders [facility] [address] 3rd Floor, [address] [place] [address] Roseann Ayala Daytime somnolence (Primary Dx) 10/01/2024 Transcribe Orders Virtual Department [address] [place] [address] Yuniel Kaplan, DO Other intervertebral disc degeneration, lumbosacral region with discogenic back pain only (Primary Dx) from Last 3 Months Social History Tobacco Use Types Packs/Day Years Used Date Smoking Tobacco: Former Cigarettes Q uit: 2012 Smokeless Tobacco: Never Tobacco Cessation:Counseling Given: Not Answered Alcohol Use Standard Drinks/Week Comments Never 0 [...] AM EDT Sexual Orientation Not on file Last Filed Vital Signs Vital Sign Reading Time Taken Comments Blood Pressure 107/61 08/03/2022 4:00 PM EDT Pulse 64 08/03/2022 4:00 PM EDT Temperature 36.2 C (97.2 F) 08/03/2022 2:00 PM EDT Respiratory Rate 17 08/03/2022 4:00 PM EDT Oxygen Saturation 97% 08/03/2022 4:00 PM EDT Inhaled Oxygen Concentration - - Weight 93 kg (205 lb) 12/17/2024 4:31 PM EDT Height 177.8 cm (5' 10 ) 12/17/2024 4:31 PM EDT Body Mass Index 29.41 12/17/2024 4:31 PM EDT Plan of Treatment Upcoming Encounters Date Type Department Care Team (Late st Contact Info) Description 06/20/2024 Procedure Pass [address] [address] 12/22/2024 9:15 AM EDT Appointment [address] [address] Mak Penaloza MD [address] [place] [address] 01/07/2025 10:30 AM EST Office Visit [facility] [address] [place] [address] 3rd Floor, [address] [place] [address] Baltazar Summers MD [address] [place] [address], [address] [address] Health Maintenance Due Date Last Done Comments BLOOD PRESSURE 1950 DEPRESSION SCREENING 1961 SMOKING Hx and SMOKELESS TOBACCO SCREENING 1962 HEPATITIS C SCREENING 08/05/1967 COLOGUARD 1994 COLONOSCOPY 1994 COLORECTAL CANCER SCREENING 1994 FIT TEST 1994 FOBT 1994 SIGMOIDOSCOPY 1994 VIRTUAL COLONOSCOPY 1994 ZOSTER VACCINES (1 of 2) 08/05/1999 PNEUMOCOCCAL VACCINES (50+ years) (2 of 2 - PPSV23) 05/15/2018 03/20/2018 DIABETIC EYE EXAM 03/31/2024 HEMOGLOBIN A1C 06/29/2024 03/31/2024 RSV VACCINE (1 - 1-dose 75+ series) 2024 INFLUENZA VACCINE (#1) 2024 , 03/11/2021, 12/11/2019 COVID-19 VACCINE (4 - 2024-2 6 season) 2024 03/17/2021, 06/10/2020, 05/15/2020 CREATININE LEVEL 03/31/2025 03/31/2024, 11/08/2022, 07/06/2022 POTASSIUM LEVEL 03/31/2025 03/31/2024, 07/06/2022 Adult Td,Tdap Booster 03/20/2028 03/20/2018 HEPATITIS A VACCINES Aged Out No long er eligible based on patient's age to complete this topic HIB VACCINES Aged Out No longer eligi ble based on patient's age to complete this topic MENINGOCOCCAL VACCINES (ACWY) Aged Out No longer eligible based on patient's age to complete this topic MENINGOCOCCAL VACCINES (B) Aged Out N o longer eligible based on patient's age to complete this topic Medical Devices Implanted Type Area Fruit Packer Face And Fill Device Identifier Shelf Expiration Date Model / Serial / Lot Stent Stent Heart Description:pci Procedures Procedure Name Priority Date/Time Associated Diagnosis Comments MRI LUMBAR SPINE (NEURO) WITHOUT CONTRAST Routine 10/18/2024 10:29 AM EDT Other intervertebral disc degeneration, lumbar region with discogenic back pain and lower extremity pain XR LUMBOSACRAL SPINE 2-3 VIEWS Routine 10/06/2024 9:34 AM EDT Other intervertebral disc degeneration, lumbosacral region with discogenic back pain only HEMOGLOBIN A1C Routine 03/31/2024 10:14 AM EST Type 2 diabetes mellitus without complication, unspecified whether longitudinal float operator insulin use COMPREHENSIVE METABOLIC PANEL Routine 03/31/2024 10:14 AM EST Type 2 diabetes mellitus without complication, unspecified whether [facility] insulin use from Last 3 Months or Most Recently Relevant to Health Maintenance Results * MRI LUMBAR SPINE (NEURO) WITHOUT [...] the June 25, 2018 lumbar spine MRI. us Sophie DICKSON IMG MR XSPECIALTY Final Res ult * XR LUMBOSACRAL SPINE 2-3 VIEWS (10/06/2024 9:34 AM EDT) Anatomical Region Laterality Modality L-spine Computed Radiogr aphy 10/06/2024 10:3 7 AM EDT Impressions 10/06/2024 10:38 AM EDT Mild levoconvex curvature and multilevel degenerative changes. Narrative 10/06/2024 10:38 AM EDT XR LUMBOSACRAL SPINE 2-3 VIEWS Referring clinician's provided indication for this examination in [facility]: Outside Radiology Order; DEGENERATION OF INTERVERTEBRAL DISC [...] clinician's provided indication for this examination in [facility]:Outside Radiology Order; DEGENERATION OF INTERVERTEBRAL DISC OFLUMBOSACRAL REGION WITH DISCONGENIC BACK PAIN COMPARISON: MRI LUMBAR SPINE (NEURO) WITHOUT CONTRAST FINDINGS: Mild levoconvex lumbar curvature. Vertebral body heights are maintained.Multilevel degenerative disc disease and multilevel degenerative facetarthritis is seen. Atherosclerotic vascular calcifications. IMPRESSION: Mild levoconvex curvature and multilevel degenerative changes. us Yuniel A Bigda DO IMG XR SPINE Final Result * (ABNORMAL) Comprehensive metabolic panel (03/31/2024 10:14 AM EST) SODIUM 135 133 - 146 mmol/L [facility] POTASSIUM 4.4 3.3 - 5.1 mmol/L [facility] CHLORIDE 98 96 - 108 mmol/L [facility] CO2 24 21 - 35 mmol/L [facility] BUN 44(H) 6 - 19 mg/dL [facility] CREATININE 1.70(H) 0.5 - 1.5 mg/dL [facility] GLUCOSE 273(H) 70 - 99 mg/dL [facility] ALBUMIN 4.1 3.9 - 4.8 g/dL [facility] TOTAL PROTEIN 6.6 6.5 - 8.0 g/dL [facility] CALCIUM 9.0 8.4 - 10.3 mg/dL [facility] ALKALINE PHOSPHATASE 61 39 - 117 U/L [facility] TOTAL BILIRUBIN 1.0 0.0 - 1.2 mg/dL [facility] AST 14 0 - 37 U/L [facility] ALT 13 0 - 40 U/L [facility] GLOBULIN 2.5 1 - 4.8 g/dL [facility] EGFR 42(L) >59 mL/min/1.7 3m2 [facility] Comment:Estimated glomerular filtration rate calculated using the CKD-EPI refit equation. ANION GAP 17 10 - 20 mmol/L [facility] Blood 03/31/2024 10:1 4 AM EST 03/31/2024 10:16 AM EST us Yuniel A Bigda DO LAB BLOOD ORDERABLES Final Resul t [facility] [address] [place] [address] * (ABNORMAL) Hemoglobin A1c (03/31/2024 10:14 AM EST) HEMOGLOBIN A1C 9.4(H) 4.3 - 5.8 % [facility] Blood 03/31/2024 10:1 4 AM EST 03/31/2024 10:16 AM EST us Yuniel Kaplan DO LAB BLOOD ORDERABLES Final Resul t [address] [address] from Last 3 Months or Most Recently Relevant to Health Maintenance Insurance MEDICARE PART A & B [employer] MEDICARE SUPPLEMENT [facility] Address: [facility] [id number] [place] [id number] MEDICARE PART A & B [employer] MEDICARE SUPPLEMENT MEDICARE PART A & B [employer] MED[employer]ARE SUPPLEMENT MEDICARE PART A & B [employer] MEDICARE SUPPLEMENT [place] [id number] MEDICARE PART A & B [employer] MEDICARE SUPPLEMENT MEDICARE PART A & B [employer] MED[employer]ARE SUPPLEMENT MEDICARE PART A & B [employer] MED[employer]ARE SUPPLEMENT MEDICARE PART A & B [employer] MEDICARE SUPPLEMENT [place] [id number] MEDICARE PART A & B [employer] MEDICARE SUPPLEMENT Care Teams Wired Sweatband Cutter Relationship Specialty Start Date End Date Yuniel Kaplan DO [email or web address] PCP - General Internal Medicine 03/15/18 Additional Source Comments The information contained in this document represents components of the legal health record. It is not the complete legal health record.[facility]
--- OUTSIDE RECORDS SUMMARY | 2024-12-19 10:58 | XMS_ITS | Encounter Summary ---
Author Organization [facility] Address [address] [place] [address] Phone Care Team Providers Care Insurance Claim Approver Name Role Phone Yuniel Kaplan Primary Care Provider [phone] Encounter Details Date Type Department Care Team (Late st Contact Info) Description 04/09/2020 Transcribe Orders Virtual Department [address] [place] [address] Renard Lewis MD [address] [facility] [address] [place] [address] [email or web address] Atrial fibrillation, unspecified type (Primary Dx) Social History Tobacco Use Types Packs/Day Years Used Date Smoking Tobacco: Former Cigarettes Q uit: 2011 Smokeless Tobacco: Never Alcohol Use Standard Drinks/Week [...] st Contact Info) Description 06/20/2024 Procedure Pass [address] [address] 12/22/2024 9:15 AM EDT Appointment [address] [place] [address] Mak Penaloza MD [address] [place] [address] [email or web address] 01/07/2025 10:30 AM EST Office Visit [facility] [address] [place] [address] 3rd Floor, [address] [place] [address] Baltazar Summers MD [address] [place] [address], [address] [place] [address] documented as of this encounter Results * CARDIOVERSION (04/16/2020 7:59 AM EST) Anatomical Region Laterality Modality Ultrasound Narrative 04/16/2020 9:37 AM EST Cardioversion UNIVERSAL PROTOCOL: Consent obtained: No Time out: Immediately prior to the procedure a time out was called A time out verifies correct patient, procedure, equipment, network support administrator and site/side marked as required. SEDATION: Patient sedated?: Yes Please see separate sedation documentation. PRE-PROCEDURE: Cardioversion basis: elective Elective indications: failure of anti-arrhythmic medications Pre-procedure rhythm: atrial fibrillation Electrodes: pads No internal ICD shock Electrodes placement: anterior-posterior ATTEMPT DETAILS: Number of attempts: 1 Attempt 1 mode: synchronous Attempt 1 waveform: biphasic Manual pressure applied?: No Attempt 1 shock (Joules): 200 Attempt 1 outcome: conversion to normal sinus rhythm POST-PROCEDURE: Post-procedure rhythm: normal sinus rhythm Patient tolerance: Patient tolerated the procedure well with no immediate complications COMMENTS: Continue Multaq us Renard Lewis MD CV CARDIAC SERVICES OR DERABLES Final Result documented in this encounter Visit Diagnoses Diagnosis Atrial fibrillation, unspecified type- Primary Atrial fibrillation, unspecified type documented in this encounter Care Teams Insurance Claim Approver Relationship Specialty Start Date End Date Yuniel Kaplan DO PCP - General Internal Medicine 03/15/18 documented as of this encounter Additional Source Comments The information contained in this document represents components of the legal health record. It is not the complete legal health record.[facility]
--- OUTSIDE RECORDS SUMMARY | 2024-12-19 10:58 | XMS_ITS | Clinical Summary ---
Author Organization [facility] Address [address] [place] [address] Phone Care Team Providers Care Credit Adjuster Name Role Phone Yuniel Kaplan Primary Care Provider [phone] Allergies No known active allergies Medications metFORMIN [...] DX:Diabetes mellitus type 2, controlled, with complications ([facility]) Essential hypertension DX:Essent ial hypertension Obesity DX:Obesity Hyperlipidemia DX:Hyperlipidemi a Chronic kidney disease Social History Tobacco Use Types Packs/Day Years Used Date Smoking Tobacco: Former Cigarettes Smokeless Tobacco: Never Tobacco Cessation:Counseling Given: Not Answered Alcohol Use Standard Drinks/Week Comments Not Currently 0 (1 standard drink = 0.6 oz pur e alcohol) Interpersonal Safety Answer Date Record ed Physical Abuse Unrecognized value 04/18/2024 Verbal Abuse Unrecognized value 04/18/2024 Sex and Gender Information Value Date [...] Health Maintenance Due Date Last Done Comments Colorectal Cancer Screening: Colonoscopy 1950 Diabetes: Annual Foot Exam 08/05/1959 Diabetes: Annual Retina Eye Exam 08/05/1959 Hepatitis A Vaccines (1 of 2 - Risk 2-dose series) 1968 Zoster Vaccines (1 of 2) 08/05/1999 Hepatitis B Vaccines (1 of 3 - Risk 3-dose series) 2009 Pneumococcal Vaccine: 50+ Years (2 of 2 - PCV20 or PCV21) 03/20/2019 03/20/2018 Abdominal Aortic Aneurysm (AAA) Screen 04/03/2023 Cholesterol Screening (Lipid Panel) 04/03/2023 Falls Risk Assessment 04/03/2023 Hepatitis C Screening 04/03/2023 Medicare Annual Wellness Visit 04/03/2023 Social Influencers of Health Screening 04/03/2023 Depression Screening 03/05/2024 Diabetes: Annual Urine Albumin-Creatinine Ratio (uACR) 03/18/2024 Diabetes: Blood Sugar Contro l Test (HGBA1C) 03/18/2024 RSV Immunization Adult Patients (1 - 1-dose 75+ series) 2024 COVID-19 Vaccine (4 - 2024-2 6 season) 2024 03/17/2021, 06/10/2020, 05/15/2020 Influenza Vaccine (#1) 2024 , 03/11/2021, 12/11/2019 Diabetes: Annual GFR (Glomerular Filtration [...] to complete this topic Insurance MEDICARE [employer] Care Teams Credit Adjuster Relationship Specialty Start Date End Date Yuniel Kaplan DO [address] [facility] [address] [place], [place] PCP - General 05/22/22
--- OUTSIDE RECORDS SUMMARY | 2024-12-19 10:58 | XMS_ITS | Encounter Summary ---
Author Organization [facility] Address [address] [place] [address] Phone Care Team Providers Care Forensic Structural Engineer Name Role Phone Yuniel Kaplan Primary Care Provider [phone] Encounter Details Date Type Department Care Team (Late Contact Info) Description 07/06/2022 Procedure Pass [place], Ct Scan [address] [address] Social History Tobacco Use Types Packs/Day Years [...] st Contact Info) Description 06/20/2024 Procedure Pass [address] [address] 12/22/2024 9:15 AM EDT Appointment [address] [address] Mak Penaloza MD [address] [place] [address] [email or web address] 01/07/2025 10:30 AM EST Office Visit [facility] [address] [place] [address] 3rd Floor, [address] [place] [address] Baltazar Summers MD [address] [place] [address], [address] [address] [email or web address] documented as of this encounter Visit Diagnoses Not on filedocumented in this encounter Care Teams Forensic Structural Engineer Relationship Specialty Start Date End Date Yuniel Kaplan DO [email or web address] PCP - General Internal Medicine 03/15/18 documented as of this encounter Additional Source Comments The information contained in this document represents components of the legal health record. It is not the complete legal health record.[facility]
--- OUTSIDE RECORDS SUMMARY | 2024-12-19 10:58 | XMS_ITS | Encounter Summary ---
Author Organization [facility] Address [address] [place] [address] Phone Care Team Providers Care Position Description Manager Name Role Phone Yuniel Kaplan Primary Care Provider [phone] Encounter Details Date Type Department Care Team (Late Contact Info) Description 07/06/2022 Procedure Pass [place], Ct Scan [address] [address] Social History Tobacco Use Types Packs/Day Years [...] st Contact Info) Description 06/20/2024 Procedure Pass [address] [address] 12/22/2024 9:15 AM EDT Appointment [address] [address] Mak Penaloza MD [address] [place] [address] [email or web address] 01/07/2025 10:30 AM EST Office Visit [facility] [address] [place] [address] 3rd Floor, [address] [place] [address] Baltazar Summers MD [address] [place] [address], [address] [address] [email or web address] documented as of this encounter Visit Diagnoses Not on filedocumented in this encounter Care Teams Position Description Manager Relationship Specialty Start Date End Date Yuniel Kaplan DO [email or web address] PCP - General Internal Medicine 03/15/18 documented as of this encounter Additional Source Comments The information contained in this document represents components of the legal health record. It is not the complete legal health record.[facility]
--- OUTSIDE RECORDS SUMMARY | 2024-12-19 10:59 | XMS_ITS | Encounter Summary ---
Author Organization [facility] Address [address] [place] [address] Phone Care Team Providers Care Supervisor Cemetery Workers Name Role Phone Yuniel Kaplan Primary Care Provider [phone] Encounter Details Date Type Department Care Team (Late st Contact Info) Description 01/27/2020 Procedure Pass [facility] [address] [place] [address] Social History Tobacco Use Types Packs/Day Years [...] st Contact Info) Description 06/20/2024 Procedure Pass [address] [address] 12/22/2024 9:15 AM EDT Appointment [address] [address] Mak Penaloza MD [address] [place] [address] 01/07/2025 10:30 AM EST Office Visit [facility] [address] [facility] 3rd Floor, [address] [place] [address] Baltazar Summers MD [address] [facility], [address] [place] [address] documented as of this encounter Visit Diagnoses Not on filedocumented in this encounter Care Teams Supervisor Cemetery Workers Relationship Specialty Start Date End Date Yuniel Kaplan DO PCP - General Internal Medicine 03/15/18 documented as of this encounter Additional Source Comments The information contained in this document represents components of the legal health record. It is not the complete legal health record.[facility]
--- OUTSIDE RECORDS SUMMARY | 2024-12-19 10:59 | XMS_ITS | Encounter Summary ---
Author Organization [facility] Address [address] [place] [address] Phone Care Team Providers Care Tube Lancer Name Role Phone Yuniel Kaplan Primary Care Provider [phone] Encounter Details Date Type Department Care Team (Late st Contact Info) Description 01/27/2020 Transcribe Orders Virtual Department [address] [place] [address] Renard Lewis MD [address] [facility] [address] [place] [address] [email or web address] Atrial fibrillation, unspecified type (Primary Dx) Social History Tobacco Use Types Packs/Day Years Used Date Smoking Tobacco: Former Cigarettes Q uit: 2012 Smokeless Tobacco: Never Alcohol Use Standard Drinks/Week Comments Not Currently 0 (1 standard drink = 0.6 oz pur e alcohol) rare Sex and Gender Information Value Date Recorded Sex Assigned at Male 07/28/2018 11:16 AM EDT Legal Sex Male 10:02 PM EDT Gender Identity Male 07/28/2018 11:16 AM EDT Sexual Orientation Not on file documented as of this encounter Plan of Treatment Upcoming Encounters Date Type Department Care Team (Late st Contact Info) Description 06/20/2024 Procedure Pass [address] [address] 12/22/2024 9:15 AM EDT Appointment [address] [place] [address] Mak Penaloza MD [address] [place] [address] [email or web address] 01/07/2025 10:30 AM EST Office Visit [facility] [address] [place] [address] 3rd Floor, [address] [place] [address] Baltazar Summers MD 22 [facility], [address] [address] [email or web address] [email or web address] Results Name Type Priority Associated Diagnoses Date /Time CARDIOVERSION Cardiac Monitors Routine Atrial fibrillation, unspecified type 02/09/2020 7:28 AM EST Scheduled Orders Name Type Priority Associated Diagnoses Orde r Schedule CARDIOVERSION Cardiac Monitors Routine Atrial fibrillation, unspecified type Expected: 01/27/2020, Expires: 04/28/2020 documented as of this encounter Visit Diagnoses Diagnosis Atrial fibrillation, unspecified type- Primary documented in this encounter Care Teams Tube Lancer Relationship Specialty Start Date End Date Yuniel Kaplan DO [email or web address] PCP - General Internal Medicine 03/15/18 documented as of this encounter Additional Source Comments The information contained in this document represents components of the legal health record. It is not the complete legal health record.[facility]
--- OUTSIDE RECORDS SUMMARY | 2024-12-19 10:59 | XMS_ITS | Encounter Summary ---
Author Organization [facility] Address [address] [place] [address] Phone Care Team Providers Care Assistant Front Desk Manager Name Role Phone Yuniel Kaplan DO Primary Care Provider [phone] Encounter Details Date Type Department Care Team (Late st Contact Info) Description 10/23/2018 Transcribe Orders Virtual Department [address] [place] [address] Samy Grover MD [address] [place] [address] [email or web address] Social History Tobacco Use Types Packs/Day Years [...] (Late Contact Info) Description 06/20/2024 Procedure Pass [address] [address] 12/22/2024 9:15 AM EDT Appointment [address] [address] Mak Penaloza MD [address] [place] [address] [email or web address] 01/07/2025 10:30 AM EST Office Visit [facility] [address] [place] [address] 3rd Floor, [address] [place] [address] Baltazar Summers MD [address] [place] [address], [address] [address] [email or web address] documented as of this encounter Visit Diagnoses Not on filedocumented in this encounter Care Teams Assistant Front Desk Manager Relationship Specialty Start Date End Date Yuniel Kaplan DO [email or web address] PCP - General Internal Medicine 03/15/18 documented as of this encounter Additional Source Comments The information contained in this document represents components of the legal health record. It is not the complete legal health record.[facility]
--- OUTSIDE RECORDS SUMMARY | 2024-12-19 11:00 | XMS_ITS | Encounter Summary ---
Author Organization [facility] Address [address] [place] [id number] Phone Care Team Providers Care Commercial Installer Name Role Phone Yuniel Kaplan Primary Care Provider Encounter Details Date Type Department Care Team (Late st Contact Info) Description 01/10/2024 Procedure Pass [facility], [address] [address] Social History Tobacco Use Types Packs/Day Years [...] st Contact Info) Description 06/20/2024 Procedure Pass [address] [address] 12/22/2024 9:15 AM EDT Appointment [address] [address] Mak Penaloza MD [address] [place] [phone] [email or web address] 01/07/2025 10:30 AM EST Office Visit [facility] [address] [place] [address] [address] [facility], [address] [place] [id number] Baltazar Summers MD [address] [place] [address], [address] [address] [email or web address] documented as of this encounter Visit Diagnoses Not on filedocumented in this encounter Care Teams Commercial Installer Relationship Specialty Start Date End Date Yuniel Kaplan DO PCP - General Internal Medicine 03/15/18 documented as of this encounter Additional Source Comments The information contained in this document represents components of the legal health record. It is not the complete legal health record.[facility]
[2024-12-19 14:35] LABS: Microalbum/Creatinine Ratio Ur 175.3 ug/mg cr (<30)
[2024-12-19 15:55] LABS: Alanine Aminotransferase 15 U/L (0-40); Albumin Level 4.5 g/dL (3.5-5.0); Anion Gap 15 (12-20); Aspartate Amino Transferase 32 U/L (5-37); Blood Urea Nitrogen 36 mg/dL (9-16); Calcium 9.3 mg/dL (8.4-10.2); Carbon Dioxide 25 mmol/L (22-29); Chloride 100 mmol/L (96-108); Cholesterol 149 mg/dL (<200); Estimated Glomerular Filt Rate 46; HDL Cholesterol 33 mg/dL (>40); Potassium 5.0 mmol/L (3.3-5.1); Sodium 135 mmol/L (135-145); Total Protein 6.9 g/dL (6.5-8.0); Triglycerides 251 mg/dL (<150)
[2024-12-19 16:05] LABS: Hemoglobin A1C 424.3236 umol/L; Total Hemoglobin (HGBA1C) 3306.9651 umol/L
[2024-12-19 18:05] LABS: Alkaline Phosphatase 74 U/L (39-117)
== END 2024-12-19 09:37 | disposition home or self-care (01) ==
LOC: HO.MANLDS 09:36
PROVIDERS: Visit Provider Internal Medicine
DX: E11.9 Type 2 diabetes mellitus without complications (principal); Z79.4 Long term (current) use of insulin
CPT/HCPCS: 36415; 80053; 80061; 82043; 82570; 83036